=== PATIENT | male | born 1950 | race Caucasian/White ===

== ENCOUNTER 2018-01-28 17:41 | Inpatient (IN) | payer MEDICARE, BC ==
[2018-01-28] MEDS ORDERED: Morphine 4 MG/ML VIAL ONE (17:49)
[2018-01-28 18:08] LABS: Hemoglobin 12.1 g/dL (14.0-18.0); Mean Corpuscular HGB CONC 30.3 g/dL (32.0-36.0); Mean Corpuscular Hemoglobin 30.1 pg (27.0-31.0); Mean Corpuscular Volume 99.4 fL (78.0-98.0); Mean Platelet Volume 6.3 fL (7.4-10.4); Platelet Count 599 thou/uL (130-400); RBC Distribution Width 13.7 % (11.5-14.5); Red Blood Cell (RBC) Count 4.02 mill/uL (4.70-6.10); White Blood Cell (WBC) Count 30.2 thou/uL (4.8-10.8)
[2018-01-28 18:13] LABS: INR-International Normal Ratio 1.1; PTT 33.3 SEC (22.9-36.1); Prothrombin Time 13.9 SEC (12.0-14.7)
[2018-01-28 18:26] LABS: ALT (SGPT) 11 U/L (8-55); AST (SGOT) 24 U/L (5-34); Albumin 3.2 g/dL (3.4-4.8); Alkaline Phosphatase 99 U/L (40-150); Anion Gap 15 mmol/L (10-20); BUN (Urea Nitrogen) 9 mg/dL (8.4-25.7); Bilirubin, Total Less than 0.2 mg/dL (0.2-1.2); Calc. Creatinine Clearance 0 mL/min (70-130); Calcium 8.7 mg/dL (7.8-10.44); Carbon Dioxide 23 mmol/L (23-31); Chloride 104 mmol/L (98-107); Estimated GFR-MDRD Greater than 90; Globulin 3.4 g/dL (2.4-3.5); Glucose 146 mg/dL (80-115); Potassium 4.7 mmol/L (3.5-5.1); Protein, Total 6.6 g/dL (5.8-8.1); Sodium 137 mmol/L (136-145)
[2018-01-28 18:29] LABS: Band 1 % (5-11); Lymphocytes 5 % (21-51); MDiff Complete? YES; Monocytes 4 % (0-10); Neutrophil 90 % (42-75); PLT Morphology Comment Appears Increased
[2018-01-28] MEDS ORDERED: Morphine 2 MG/ML SYRINGE ONE (19:10)
[2018-01-28] MEDS ORDERED: methylPREDNISolone Sod Succ/PF 125 MG/2 ML VIAL ONE (19:10)
--- NOTE | 2018-01-28 19:20 | RAD ---
CHEST 1 VIEW: Date: 01/28/18 HISTORY: Pneumothorax. COMPARISON: Radiograph same date. FINDINGS: Interval decreased kinking of the thoracostomy tube. The subcutaneous emphysema is similar. Multiple right-sided rib fractures. Right upper lung mass. IMPRESSION: Size decreased pneumothorax with decreased kinking of the thoracostomy tube. POS: [facility]
[2018-01-28] MEDS ORDERED: Ondansetron ODT 4 MG TAB PO PRN (19:27)
[2018-01-28] MEDS ORDERED: Dextrose 50% Abboject 50 ML SYRINGE SLOW IVP PRN (19:27)
[2018-01-28] MEDS ORDERED: Ondansetron PF 4 MG/2 ML Vial IVP PRN (19:27)
[2018-01-28] MEDS ORDERED: Dextrose 5% in Water 1,000 ML IV PRN (19:27)
[2018-01-28] MEDS ORDERED: Ketorolac Tromethamine 30 MG/ML VIAL ONE (19:28)
[2018-01-28] MEDS ORDERED: Bacitracin Zinc 1 Packet ONE (19:34)
[2018-01-28 19:55] LABS: CKMB 2.8 ng/mL (0-6.6); Troponin I Less than 0.010 ng/mL (< 0.028)
[2018-01-28 21:30] VITALS: BMI 14.1
[2018-01-28] MEDS: Fluconazole 100 MG TAB PO SCH (21:42)
[2018-01-28] MEDS: Famotidine 20 MG TAB PO SCH (21:42)
[2018-01-28] MEDS: Gabapentin 100 MG CAP PO SCH (21:44)
[2018-01-28] MEDS: Acetaminophen/Codeine 30-300mg Tablet PO SCH (21:45)
[2018-01-28] MEDS: guaiFENesin ER 600 MG TAB PO SCH (21:45)
--- NOTE | 2018-01-28 23:32 | HP ---
DATE OF ADMISSION: 01/28/2018 ATTENDING PHYSICIAN: Dr. Davis. TRAUMA ACTIVATION: Not applicable. HISTORY OF PRESENT ILLNESS: This is a 67-year-old male with a past medical history of COPD and histoplasmosis who presented to [facility] with a chief complaint of chest pain status post fall. Patient states that he was ambulating in his house when he turned and fell suddenly striking his right side. Denies head trauma or loss of consciousness, dizziness, chest pain, shortness of breath out of the ordinary for him increased sputum production, fevers or chills. He was seen and evaluated in the emergency room and found to have a large right hemopneumothorax with multiple rib fractures. A chest tube was placed and he was transferred to [facility] for further evaluation and care. Upon our evaluation here, the patient was significantly tachycardic and had continued chest discomfort. Post-chest tube, chest x-ray demonstrated reexpansion of his lung. He had persistent tachycardia and was on 6 liters nasal cannula. PAST MEDICAL HISTORY/ALLERGIES: None, although he does have an adverse reaction to LEVAQUIN. HOME MEDICATIONS: Include sertraline 100 mg daily, Mucinex 600 mg b.i.d., Tylenol #3 one q.4-6 hours p.r.n., ibuprofen p.r.n., DuoNeb q.i.d. p.r.n., albuterol inhaler p.r.n., ibandronate 150 mg monthly, Trelegy Ellipta 1 puff daily, fluconazole 200 mg b.i.d. CHRONIC MEDICAL ILLNESSES: Include COPD, osteoporosis, and orthostatic hypotension, histoplasmosis. PAST SURGICAL HISTORY: Mastoidectomy. 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 He has a remote history of significant tobacco abuse. Denies alcohol or illicit drug use. FAMILY HISTORY: Significant for a father with colon cancer and a sister with breast cancer as well as a brother with CAD. REVIEW OF SYSTEMS: A 10-point review of systems was performed and negative except as indicated in the HPI. PHYSICAL EXAMINATION: VITAL SIGNS: Most recent vital signs include blood pressure 102/73, pulse 120, respirations 20, O2 sat 99% on 4 liters nasal cannula. Pain 6/10, temperature 98.1. GENERAL: Elderly appearing male in no acute distress, resting in bed. HEAD: Normocephalic, atraumatic. EYES: Pupils are PERRL. Extraocular movements are intact. NECK: Supple. Trachea is midline. PULMONARY: Chest is tender to palpation all along the right side. Pain and splinting with inspiration. Chest tube dressing is clean, dry, and intact. There is some inspiratory wheezing with coarse rhonchi. CARDIOVASCULAR: Tachycardic, no obvious murmurs, rubs or gallops. GASTROINTESTINAL: Abdomen is soft, nontender, nondistended. Bowel sounds are positive. MUSCULOSKELETAL: Moves all extremities x4. There is a left upper extremity skin tear. NEUROLOGIC: No focal deficit is noted. LABORATORY DATA AND IMAGING DATA: WBC 30.2, hemoglobin 12.1, hematocrit 40.0, platelet count 599, 1% bands. INR is 1.1. Sodium 137, potassium 4.7, chloride 104, carbon dioxide 23, BUN 9, creatinine 0.82, glucose 146. AST and ALT within normal limits. Troponin less than 0.010. EKG was sinus tachycardia, nonspecific T-wave changes and right axis deviation. Chest x-ray with hyperinflated lungs, coarse interstitial markings, right upper lobe mass and multiple right-sided rib fractures. Chest tube is in place with decreased amount of kinking. CT of the chest, abdomen, and pelvis performed at an outside facility was read as having a large right-sided hemopneumothorax, multiple right rib fractures including ribs 6, 7, 8 and 9 with segmental fractures. There was an interval increase in the right upper lobe mass and left basilar opacity. CT of the abdomen and pelvis was negative for acute traumatic injury. ASSESSMENT: 1. Status post mechanical fall. 2. Large hemopneumothorax status post chest tube placement. 3. History of severe chronic obstructive pulmonary disease. 4. 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 5. Acute traumatic pain. 6. Flail chest, right rib fractures 6, 7, 8 and 9. 7. Sinus tachycardia. 8. Macrocytic anemia. 9. Leukocytosis and thrombocytosis. PLAN: Admit to Trauma Services. We will admit to IMCU for closer monitoring given patient's significant tachycardia and O2 requirement. Multimodal pain management. Continue patient's home fluconazole and Tylenol #3. Xopenex nebs given COPD and tachycardia. The patient has received a dose of IV steroids. A.m. chest x-ray. Incentive spirometry and pulmonary toileting. A.m. labs. Plan for admission were discussed with the patient and family at bedside and all questions were answered at the time of this dictation. Trauma attending has been notified of admission. ARTURO
[2018-01-29] MEDS: Ketorolac Tromethamine 30 MG/ML VIAL IVP SCH ×5 (00:10→22:59)
[2018-01-29] MEDS: Levalbuterol HCl 0.63 MG/3 ML NEB NEB SCH ×2 (01:01→06:03)
[2018-01-29] MEDS: Acetaminophen/Codeine 30-300mg Tablet PO SCH ×6 (01:49→20:25)
[2018-01-29 04:23] LABS: Anion Gap 11 mmol/L (10-20); BUN (Urea Nitrogen) 10 mg/dL (8.4-25.7); Calc. Creatinine Clearance 68 mL/min (70-130); Calcium 8.9 mg/dL (7.8-10.44); Carbon Dioxide 26 mmol/L (23-31); Chloride 105 mmol/L (98-107); Estimated GFR-MDRD Greater than 90; Glucose 188 mg/dL (80-115); Magnesium 1.6 mg/dL (1.6-2.6); Phosphorus 3.6 mg/dL (2.3-4.7); Potassium 4.3 mmol/L (3.5-5.1); Sodium 138 mmol/L (136-145)
[2018-01-29 04:38] LABS: #Lymphocytes 0.5 thou/uL (1.20-3.40); #Monocytes 0.4 thou/uL (0.11-0.59); #Neutrophils 16.9 thou/uL (1.40-6.50); %Eosinophils 0.1 % (0.0-10.0); %Monocytes 2.2 % (0.0-10.0); %Neutrophils 94.6 % (42.0-75.0); Hemoglobin 10.8 g/dL (14.0-18.0); Mean Corpuscular HGB CONC 31.4 g/dL (32.0-36.0); Mean Corpuscular Volume 98.9 fL (78.0-98.0); Mean Platelet Volume 6.5 fL (7.4-10.4); Platelet Count 522 thou/uL (130-400); RBC Distribution Width 13.6 % (11.5-14.5); White Blood Cell (WBC) Count 17.8 thou/uL (4.8-10.8)
[2018-01-29] MEDS ORDERED: Magnesium 2 GM/50 ML 2 GM in Premix Bag 1 BAG IVPB SCH (08:15)
[2018-01-29] MEDS: Famotidine 20 MG TAB PO SCH ×2 (09:00→21:04)
[2018-01-29] MEDS: Fluconazole 100 MG TAB PO SCH ×2 (09:00→21:04)
[2018-01-29] MEDS: Gabapentin 100 MG CAP PO SCH ×3 (09:01→21:04)
[2018-01-29] MEDS: guaiFENesin ER 600 MG TAB PO SCH ×2 (09:01→20:25)
[2018-01-29] MEDS: FLUTICASONE FUROATE INH SCH (09:18)
[2018-01-29] MEDS: UMECLIDINIUM INH SCH (09:18)
[2018-01-29] MEDS: Cyclobenzaprine 10 MG TAB PO PRN ×2 (09:18→20:26)
[2018-01-29] MEDS: VILANTEROL INH SCH (09:18)
--- NOTE | 2018-01-29 09:48 | RAD ---
PORTABLE CHEST: Date: 01/29/18 HISTORY: Follow-up pneumothorax. COMPARISON: 01/28/18. FINDINGS: Right-sided chest tube is unchanged in position. Lungs appear well aerated. Opacification of the righ t apex is unchanged. No significant pneumothorax. Right-sided rib fractures again noted. Extensive ri ght subcutaneous emphysema again noted. IMPRESSION: No acute interval change apparent. POS: [facility]
[2018-01-29] MEDS: Acetaminophen/Codeine 30-300mg Tablet PO PRN ×3 (10:21→22:52)
--- NOTE | 2018-01-29 14:23 | PRG ---
DATE OF SERVICE: 01/29/2018 SUBJECTIVE: This is a 67-year-old male, hospital day #2 who presented to [facility] as a transfer from [facility] status post mechanical fall. The patient sustained multiple rib fractures, resulting in flail segments and a large right hemopneumothorax. Chest tube was placed in [place]. There were no acute overnight events. This morning, the patient states that the pain has been improved. Heart rate is improved as is O2 requirements. Chest x-ray is stable. OBJECTIVE: VITAL SIGNS: Temperature 97.8, pulse 97, respirations 18, O2 sat 97% on 2 liters nasal cannula, blood pressure 128/83. GENERAL: Elderly appearing male in no acute distress, resting in bed. PULMONARY: IS 1250 mL. Nonlabored breathing. Symmetric rise. Chest tube is in place. Minimal serosanguineous drainage. CARDIOVASCULAR: Regular rate and rhythm. GASTROINTESTINAL: Abdomen is soft, nontender, nondistended. MUSCULOSKELETAL: Moves all extremities x4. NEUROLOGIC: No focal deficit noted. LABORATORY DATA AND IMAGING DATA: WBC 17.8, hemoglobin 10.8, hematocrit 34.6, platelet count 522. Sodium 138, potassium 4.3, chloride 105, carbon dioxide 26 , BUN 10, creatinine 0.76, glucose 188, phosphorus 3.6, magnesium 1.6. Chest x- ray read as no acute interval change. ASSESSMENT: 1. Status post mechanical fall. 2. Right hemopneumothorax. 3. Acute traumatic pain. 4. Right rib fractures 6, 7, 8 and 9 with flail segment. 5. Histoplasmosis. 6. History of chronic obstructive pulmonary disease. 7. Generalized weakness and deconditioning. 8. Leukocytosis, improved. 9. Macrocytic anemia. 10. Hypomagnesemia. PLAN: Replete abnormal electrolytes. Continue to encourage incentive spirometry and mobility. PT/OT given patient's history of pulmonary disease and reported generalized deconditioning. Continue pain regimen as ordered. A.m. chest x-ray. Chest tube to water seal. Patient is stable for transfer to surgical floor. The patient had been seen and evaluated with Dr. Brooke. Plan of care was discussed with the patient at bedside. All questions were answered at the time of this dictation. [facility]ITAL[facility]
[2018-01-30] MEDS: Acetaminophen/Codeine 30-300mg Tablet PO SCH ×6 (03:35→21:10)
[2018-01-30] MEDS: Ketorolac Tromethamine 30 MG/ML VIAL IVP SCH (06:04)
[2018-01-30 06:11] LABS: #Lymphocytes 1.1 thou/uL (1.20-3.40); #Monocytes 1.3 thou/uL (0.11-0.59); #Neutrophils 13.4 thou/uL (1.40-6.50); %Basophils 0.1 % (0.0-1.0); %Eosinophils 0.1 % (0.0-10.0); %Lymphocytes 7.1 % (21.0-51.0); %Monocytes 8.1 % (0.0-10.0); %Neutrophils 84.6 % (42.0-75.0); Hemoglobin 9.9 g/dL (14.0-18.0); Mean Corpuscular HGB CONC 31.6 g/dL (32.0-36.0); Mean Corpuscular Hemoglobin 30.9 pg (27.0-31.0); Mean Corpuscular Volume 97.9 fL (78.0-98.0); Mean Platelet Volume 6.5 fL (7.4-10.4); Platelet Count 485 thou/uL (130-400); RBC Distribution Width 13.6 % (11.5-14.5); White Blood Cell (WBC) Count 15.8 thou/uL (4.8-10.8)
--- NOTE | 2018-01-30 08:02 | RAD ---
PORTABLE CHEST: Date: 01/30/18 HISTORY: Follow-up pneumothorax and chest tube. COMPARISON: 01/29/18. FINDINGS/IMPRESSION: Right side chest tube is unchanged. Large amount of subcutaneous emphysema again noted over the right chest. No evidence of significant pneumothorax. The lungs otherwise remain clear and unchanged. POS: [facility]
[2018-01-30] MEDS: Fluconazole 100 MG TAB PO SCH ×2 (09:09→19:24)
[2018-01-30] MEDS: Famotidine 20 MG TAB PO SCH ×2 (09:10→19:24)
[2018-01-30] MEDS: guaiFENesin ER 600 MG TAB PO SCH ×2 (09:10→19:46)
[2018-01-30] MEDS: Gabapentin 100 MG CAP PO SCH ×3 (09:10→19:24)
[2018-01-30] MEDS: Enoxaparin Sodium 40 MG/0.4 ML SYRINGE SC SCH (09:10)
[2018-01-30] MEDS: Cyclobenzaprine 10 MG TAB PO PRN ×2 (11:21→19:46)
[2018-01-30] MEDS: Acetaminophen/Codeine 30-300mg Tablet PO PRN ×2 (11:23→19:47)
[2018-01-30] MEDS: VILANTEROL INH SCH (13:14)
[2018-01-30] MEDS: FLUTICASONE FUROATE INH SCH (13:14)
[2018-01-30] MEDS: UMECLIDINIUM INH SCH (13:14)
[2018-01-30] MEDS: Ibuprofen 600 MG TAB PO SCH ×2 (13:31→21:10)
--- NOTE | 2018-01-30 19:46 | PRG ---
DATE OF SERVICE: 01/30/2018 SUBJECTIVE: This is a 67-year-old male, hospital day and post-injury day #3, who had a mechanical fa ll resulting multiple right rib fractures and a large right hemopneumothorax. There were no acute ov ernight events. The patient states that pain is tolerable. He remains O2 dependent. He did have li mited mobility with physical therapy yesterday. Upon my evaluation, the patient vocalized no complai nts. OBJECTIVE: VITAL SIGNS: Temperature 97.8, pulse 107, respirations 22, O2 sat 98% on room air, blood pressure 13 5/79. GENERAL: Elderly appearing male in no acute distress, resting in bed. PULMONARY: mL. Breathing is nonlabored. LUNGS: Symmetric chest rise. Chest tube is in place with minimal serosanguineous drainage. Lungs a re distant but minimal drainage. CARDIOVASCULAR: Mildly tachycardic. GASTROINTESTINAL: Abdomen is soft, nontender, nondistended. MUSCULOSKELETAL: Moves all extremities x4. NEUROLOGIC: No focal deficit noted. RADIOGRAPHIC FINDINGS: Chest x-ray with stable appearance. Chest tube is in place. No evidence of pneumothorax. ASSESSMENT: 1. Status post mechanical fall. 2. Right hemopneumothorax. 3. Acute traumatic pain. 4. Right rib fractures 6, 7, 8, and 9 with flail segment. 5. Histoplasmosis. 6. History of chronic obstructive pulmonary disease. 7. Weakness and deconditioning secondary to above. 8. Leukocytosis, improving. 9. Macrocytic anemia, stable. PLAN: Discontinue chest tube at this time. Continue to wean oxygen as tolerated. Encourage incenti ve spirometry, pulmonary toileting, and mobility. Importance Of note, the patient has been refusing his DVT prophylaxis. Importance of this medication and risk factors for DVT discussed extensively wi th the patient, who vocalized his understanding. Case Management for assistance with disposition. P marshall of care was discussed with the patient at bedside who verbalized his understanding. All question s were answered at the time of this dictation. The patient was discussed with trauma attending.
[2018-01-31] MEDS: Acetaminophen/Codeine 30-300mg Tablet PO PRN (00:49)
[2018-01-31] MEDS: Acetaminophen/Codeine 30-300mg Tablet PO SCH ×6 (04:27→20:16)
[2018-01-31] MEDS: Ibuprofen 600 MG TAB PO SCH ×3 (05:30→20:59)
[2018-01-31 06:04] LABS: #Eosinphils 0.2 thou/uL (0.0-0.7); #Lymphocytes 1.1 thou/uL (1.20-3.40); #Monocytes 1.1 thou/uL (0.11-0.59); #Neutrophils 9.1 thou/uL (1.40-6.50); %Basophils 0.2 % (0.0-1.0); %Eosinophils 1.9 % (0.0-10.0); %Lymphocytes 9.6 % (21.0-51.0); %Monocytes 9.4 % (0.0-10.0); %Neutrophils 78.9 % (42.0-75.0); Hemoglobin 10.7 g/dL (14.0-18.0); Mean Corpuscular HGB CONC 30.5 g/dL (32.0-36.0); Mean Corpuscular Hemoglobin 30.1 pg (27.0-31.0); Mean Corpuscular Volume 98.5 fL (78.0-98.0); Mean Platelet Volume 6.5 fL (7.4-10.4); Platelet Count 536 thou/uL (130-400); RBC Distribution Width 13.8 % (11.5-14.5); Red Blood Cell (RBC) Count 3.55 mill/uL (4.70-6.10); White Blood Cell (WBC) Count 11.5 thou/uL (4.8-10.8)
[2018-01-31 06:27] LABS: Anion Gap 10 mmol/L (10-20); BUN (Urea Nitrogen) 7 mg/dL (8.4-25.7); Calc. Creatinine Clearance 78 mL/min (70-130); Calcium 8.9 mg/dL (7.8-10.44); Carbon Dioxide 32 mmol/L (23-31); Chloride 103 mmol/L (98-107); Estimated GFR-MDRD Greater than 90; Glucose 97 mg/dL (80-115); Magnesium 1.6 mg/dL (1.6-2.6); Phosphorus 2.6 mg/dL (2.3-4.7); Potassium 4.4 mmol/L (3.5-5.1); Sodium 141 mmol/L (136-145)
--- NOTE | 2018-01-31 08:50 | RAD ---
SINGLE VIEW CHEST: Date: 01/31/18 COMPARISON: 01/30/18. HISTORY: Chest tube removal. FINDINGS: Single view of the chest shows a normal sized cardiomediastinal silhouette. Increased interstitial ivy ng markings are present. The right-sided chest tube has been removed. No pneumothorax is seen. There is extensive air in the right chest wall. IMPRESSION: Stable exam status post chest tube removal. POS: [facility]
[2018-01-31] MEDS: Enoxaparin Sodium 40 MG/0.4 ML SYRINGE SC SCH (10:07)
[2018-01-31] MEDS: Cyclobenzaprine 10 MG TAB PO PRN (10:08)
[2018-01-31] MEDS: guaiFENesin ER 600 MG TAB PO SCH ×2 (10:08→20:18)
[2018-01-31] MEDS: Gabapentin 100 MG CAP PO SCH ×3 (10:08→20:16)
[2018-01-31] MEDS: Famotidine 20 MG TAB PO SCH ×2 (10:08→20:18)
[2018-01-31] MEDS: Fluconazole 100 MG TAB PO SCH ×2 (10:08→20:18)
[2018-01-31] MEDS: FLUTICASONE FUROATE INH SCH ×2 (10:41→12:05)
[2018-01-31] MEDS: VILANTEROL INH SCH ×2 (10:41→12:05)
[2018-01-31] MEDS: UMECLIDINIUM INH SCH ×2 (10:41→12:05)
--- NOTE | 2018-01-31 15:11 | PRG-2 ---
DATE OF SERVICE: 01/31/2018 RESIDENT: Sylvia Maria MD SUPERVISING ATTENDING: Jean Pierre Brooke DO SUBJECTIVE: This is a 67-year-old male, hospital day and post-injury day #4, who had a mechanical fall resulting in multiple right rib fractures and a large right hemopneumothorax. There were no acute events overnight. The patient states that his pain is tolerable. He remains on 2 liters nasal cannula. He continues to work with physical and occupational therapy. Upon my evaluation, the patient vocalizes no complaints. OBJECTIVE: VITAL SIGNS: Temperature 98, pulse 108, respirations 18, O2 saturation 96% on room air, blood pressure 142/86. GENERAL: Elderly appearing male in no acute distress, resting in bed. PULMONARY: On 2 liters nasal cannula on exam, breathing is nonlabored. LUNGS: Bilateral symmetrical chest rise. CARDIOVASCULAR: Mildly tachycardic. ABDOMEN: Soft, nontender, nondistended. MUSCULOSKELETAL free range of motion in all extremities x4. NEUROLOGIC: Nonfocal exam. LABORATORY DATA: WBCs 11.5, hemoglobin 10.7, hematocrit 35, platelets 536. Sodium 141, potassium 4.4, chloride 103, BUN 7, creatinine 0.66, calcium 8.9, phosphorus 2.6, magnesium 1.6. RADIOGRAPHIC FINDINGS: Chest x-ray this a.m. that read stable exam, status post chest tube removal. ASSESSMENT: 1. Status post mechanical fall. 2. Right hemopneumothorax. 3. Acute traumatic pain. 4. Right rib fractures 6 through 9 with flail segment. 5. Histoplasmosis on fluconazole. 6. History of chronic obstructive pulmonary disease. 7. Weakness and deconditioning secondary to above. 8. Leukocytosis, improving. 9. Macrocytic anemia, stable. PLAN: The patient continues to improve. We will continue to wean oxygen as tolerated. Pt has a hx of COPD, not on oxygen at home. Currently on 2L NC. We will continue to encourage incentive spirometry, pulmonary toileting, and mobility. The patient will continue to work with PT/OT. Importance of note, the patient continues to refuse his DVT prophylaxis along with other p.o. medications. The importance of this medication and risk factors of DVT were discussed extensively with the patient, who vocalizes understanding. Case Management continues to be of assistance with disposition. Per Case Management , the daughter states that the patient is noncompliant and in the outpatient rehab setting and would like him to go to inpatient. The patient is refusing inpatient rehab at this time. We will continue to discuss with family and case management for disposition. Plan of care was discussed with the patient at the bedside. He verbalizes understanding. All questions were answered at the time of evaluation. The patient's plan and disposition were discussed with trauma attending Dr. Brooke who is in agreement. [facility]
[2018-01-31] MEDS: Senokot 8.6 MG TAB PO SCH (20:19)
[2018-02-01] MEDS: Acetaminophen/Codeine 30-300mg Tablet PO SCH ×5 (00:16→16:00)
[2018-02-01] MEDS: Ibuprofen 600 MG TAB PO SCH ×2 (05:10→13:39)
[2018-02-01] MEDS: Fluconazole 100 MG TAB PO SCH (08:59)
[2018-02-01] MEDS: Senokot 8.6 MG TAB PO SCH (08:59)
[2018-02-01] MEDS: Gabapentin 100 MG CAP PO SCH ×2 (09:00→13:39)
[2018-02-01] MEDS: guaiFENesin ER 600 MG TAB PO SCH (09:00)
[2018-02-01] MEDS: Famotidine 20 MG TAB PO SCH (09:00)
[2018-02-01] MEDS: Enoxaparin Sodium 40 MG/0.4 ML SYRINGE SC SCH (09:00)
[2018-02-01] MEDS ORDERED: Polyethylene Glycol 3350 17 GM Packet PO SCH (09:00)
[2018-02-01] MEDS: FLUTICASONE FUROATE INH SCH (09:02)
[2018-02-01] MEDS: VILANTEROL INH SCH (09:02)
[2018-02-01] MEDS: UMECLIDINIUM INH SCH (09:02)
[2018-02-01] MEDS: Cyclobenzaprine 10 MG TAB PO PRN (16:00)
[2018-02-01 16:01] VITALS: BP 152/90; TEMP 98.3
--- NOTE | 2018-02-02 06:52 | DIS-2 ---
DATE OF ADMISSION: 01/28/2018 DATE OF DISCHARGE: 02/01/2018 RESIDENT: Dr. Sylvia Maria SUPERVISING ATTENDING: Dr. Jean iPerre Brooke CONSULTATIONS: Case management, PT/OT. PROCEDURES: None. PRIMARY DIAGNOSES: Hemopneumothorax status post chest tube placement, flail chest with rib fractures 6 through 9 on the right. SECONDARY DIAGNOSES: Sinus tachycardia, macrocytic anemia, COPD, histoplasmosis. DISCHARGE MEDICATIONS: 1. Acetaminophen with codeine 1 tab oral every 4 hours. 2. Ibuprofen (Motrin) 600 mg oral every 8 hours. 3. Guaifenesin ER (Mucinex) 600 mg oral twice daily. 4. Ibandronate sodium 150 mg oral every 30 days. 5. Albuterol sulfate HFA (Proventil HFA) 1 puff inhalation every 4 hours as needed. 6. Ipratropium, albuterol sulfate (DuoNeb) 3 mL nebulizer 4 times daily as needed. 7. Multivitamin 1 tablet oral daily. DISCONTINUED MEDICATIONS: None. HISTORY OF PRESENT ILLNESS/HOSPITAL COURSE: This is a 67-year-old male with a past medical history o f COPD and histoplasmosis on fluconazole who presented to the [facility] with a chief complaint of chest pain status post fall. The patient was ambulating at his house and he turned and fell suddenly striking his right side. He was found to have a large right hemopneumothorax with multiple rib frac tures. A chest tube was placed and he was transferred to [facility] for further evaluation and care. The patient had significant tachycardia on arrival and continued chest discomfort. Post-c hest tube chest x-ray demonstrated reexpansion of the lung. The patient arrived on 6 liters nasal ca nnula. The patient was admitted to the IMCU and monitored closely. Multimodal pain management was b egun. The patient's home medications of fluconazole and Tylenol 3 were restarted. Nebs were given f or his history of COPD and tachycardia. He received a dose of steroids. Incentive spirometry, pulmo nary toilet, PT/OT and ambulation have all been highly encouraged to the patient. His heart rate imp roved and his O2 was able to be weaned to 2 liters nasal cannula prior to discharge. Electrolytes we re replaced as necessary. With the patient's improved status, he was admitted to the surgical floor. Chest tube was removed on 01/30/2018 with no complications. There were some occasions in which the patient refused medications such as his DVT prophylaxis, fluconazole, gabapentin. Chest x-ray on showed stable findings, no pneumothorax. Case management helped to get the patient placed a t an inpatient rehab facility. The family stated that the patient would be noncompliant in an outpat ient rehab and preferred inpatient rehab. After discussing the options with the patient, he agreed t o inpatient rehab. The patient's plan was discussed with Dr. Brooke on the day of discharge, who was in agreement. DISPOSITION: Stable. DISCHARGE INSTRUCTIONS: 1. Location: Inpatient rehab with Dr. Davis. 2. Diet: Regular. 3. Activity: No heavy lifting. 4. Followup: Follow up with PCP within 2 weeks.
--- NOTE | 2018-02-05 22:10 | EKG ---
Test Reason : TACHYCARDIA Blood Pressure : / mmHG Vent. Rate : 140 BPM Atrial Rate : 140 BPM P-R Int : 136 ms QRS Dur : 082 ms QT Int : 274 ms P-R-T Axes : 089 264 082 degrees QTc Int : 418 ms Sinus tachycardia Right superior axis deviation Inferior-posterior infarct , age undetermined Cannot rule out Anterior infarct , age undetermined Abnormal ECG Significant motion artifact Confirmed by FRANCO BRAGG MD ([id number]), editor news REMI LAIRD ([id number]) on 02/05/2018 10:10:28 PM Referred By: Confirmed By:FRANCO BRAGG MD
== END 2018-02-01 17:30 | DRG 199 ==
LOC: ERS 17:41 → IMCU/EMU 19:22 → SURG B 01-29 13:15
PROVIDERS: ADMIT Specialist; ATTEND Specialist
DX: S27.2XXA Traumatic hemopneumothorax, initial encounter (principal); S22.5XXA Flail chest, initial encounter for closed fracture; B39.2 Pulmonary histoplasmosis capsulati, unspecified; S51.811A Laceration without foreign body of right forearm, initial encounter; S51.012A Laceration without foreign body of left elbow, initial encounter; E83.42 Hypomagnesemia; R00.0 Tachycardia, unspecified; J44.9 Chronic obstructive pulmonary disease, unspecified; D53.9 Nutritional anemia, unspecified; M81.0 Age-related osteoporosis without current pathological fracture; Z87.891 Personal history of nicotine dependence; W18.39XA Other fall on same level, initial encounter; Y92.008 Other place in unspecified non-institutional (private) residence as the place of occurrence of the external cause
CPT/HCPCS: 36415; 71045; 80048; 80053; 82553; 83735; 84100; 84484; 85025; 85610; 85730; 86850; 86900; 86901; 93005; 94640; 96361; 96374; 96375; 96376; G0390; G8978-GP-CL; G8979-GP-CI; G8987-GO-CJ; G8988-GO-CI; J1650; J1885; J2270; J2930; J7614; J7620

== ENCOUNTER 2018-02-11 14:44 | Inpatient (IN) | payer MEDICARE, BC ==
[2018-02-11] MEDS ORDERED: methylPREDNISolone Sod Succ/PF 125 MG/2 ML VIAL ONE (15:50)
[2018-02-11] MEDS ORDERED: Water For Inject, Bacteriostat 30 ML ONE (15:50)
[2018-02-11] MEDS ORDERED: Piperacillin/Tazobactam 3.375 GM VIAL ONE (15:50)
--- NOTE | 2018-02-11 15:50 | RAD ---
PORTABLE CHEST 1 VIEW: Date: 02/11/18 Time: 1534 hours HISTORY: Cough. FINDINGS/IMPRESSION: Comparison made with exam of 02/09/18. The heart size is normal. The aorta is tortuous. Chronic changes are again seen bilaterally. Right-si ded small pleural effusions again noted. New small area of opacification is seen in the left lung bas e. Right-sided rib fractures are again demonstrated. POS: [facility]
[2018-02-11 16:08] LABS: Hemoglobin 11.3 g/dL (14.0-18.0); Mean Corpuscular HGB CONC 30.8 g/dL (32.0-36.0); Mean Corpuscular Hemoglobin 30.1 pg (27.0-31.0); Mean Corpuscular Volume 97.7 fL (78.0-98.0); Mean Platelet Volume 6.3 fL (7.4-10.4); Platelet Count 776 thou/uL (130-400); RBC Distribution Width 13.5 % (11.5-14.5); Red Blood Cell (RBC) Count 3.76 mill/uL (4.70-6.10); White Blood Cell (WBC) Count 22.2 thou/uL (4.8-10.8)
[2018-02-11 16:15] LABS: Bilirubin Negative (Negative); Blood, Urine Large (Negative); Clarity CLEAR (Clear); Glucose, Urine (Dipstick) Negative (Negative); Leukocyte Small (Negative); Nitrite Negative (Negative); Protein, Urine (Dipstick) Negative (Neg-Trace); Specific Gravity, Urine 1.037 (1.002-1.036); Urobilinogen 0.2 mg/dL (0.2-1.0); pH, Urine 6.5 (5.0-9.0)
[2018-02-11 16:17] LABS: Bacteria/HPF None Seen HPF (None Seen); Hyaline Casts/LPF 4-6 HYALINE CAST LPF (0-3 Hyaline); Pathc Cast-AUWi Flag 0.87 (0-2.49); RBC/HPF GREATER THAN 50-TNTC HPF (0-3)
[2018-02-11 16:24] LABS: Band 1 % (5-11); Hypochromia SLIGHT = 6-15 cells (100X) (0-5/hpf); Lymphocytes 4 % (21-51); MDiff Complete? YES; Monocytes 3 % (0-10); Neutrophil 92 % (42-75); PLT Morphology Comment Appears Increased
[2018-02-11 16:25] LABS: Renal Epithelial None Seen HPF (0-3); Transitional Epithelial 0-3 HPF (0-3)
[2018-02-11 16:25] LABS: ALT (SGPT) 15 U/L (8-55); AST (SGOT) 24 U/L (5-34); Albumin 3.3 g/dL (3.4-4.8); Alkaline Phosphatase 121 U/L (40-150); Anion Gap 16 mmol/L (10-20); BUN (Urea Nitrogen) 9 mg/dL (8.4-25.7); Bilirubin, Total 0.3 mg/dL (0.2-1.2); Calc. Creatinine Clearance 0 mL/min (70-130); Calcium 9.3 mg/dL (7.8-10.44); Carbon Dioxide 28 mmol/L (23-31); Chloride 92 mmol/L (98-107); Estimated GFR-MDRD Greater than 90; Globulin 3.7 g/dL (2.4-3.5); Glucose 105 mg/dL (80-115); Lipase Less than 4 U/L (8-78); Potassium 4.6 mmol/L (3.5-5.1); Sodium 131 mmol/L (136-145)
[2018-02-11 16:28] LABS: CKMB 5.7 ng/mL (0-6.6); Troponin I Less than 0.010 ng/mL (< 0.028)
[2018-02-11] MEDS ORDERED: Acetaminophen/Codeine 30-300mg Tablet ONE (18:45)
[2018-02-11] MEDS ORDERED: Sodium Chloride 0.45% 1,000 ML IV SCH (19:30)
[2018-02-11 19:41] VITALS: BMI 15.0
[2018-02-11] MEDS ORDERED: Ondansetron PF 4 MG/2 ML Vial IVP PRN (20:49)
[2018-02-11] MEDS ORDERED: Diabetic Tussin 200 MG/10 ML UDCUP PO PRN (20:49)
[2018-02-11] MEDS ORDERED: Benzonatate 100 MG CAP PO PRN (20:49)
[2018-02-11] MEDS ORDERED: hydrALAZINE 20 MG/ML VIAL SLOW IVP PRN (20:49)
[2018-02-11] MEDS ORDERED: Polyethylene Glycol 3350 17 GM Packet PO PRN (20:49)
[2018-02-11] MEDS ORDERED: PROVENTIL INHALER 6.7 G (200 INHALATIONS) INH PRN (20:49)
[2018-02-11] MEDS ORDERED: Ondansetron ODT 4 MG TAB PO PRN (20:49)
[2018-02-11] MEDS ORDERED: Acetaminophen 500 MG TAB PO PRN (20:49)
[2018-02-11] MEDS ORDERED: Vancomycin HCl 1 GM in Sodium Chloride 0.9% 250 ML 300 ML IVPB SCH (21:00)
[2018-02-11] MEDS: Sodium Chloride 0.9% 1,000 ML IV SCH (21:24)
[2018-02-11] MEDS: Cefepime 2 GM in Sodium Chloride 0.9% 100 ML IVPB SCH (21:25)
[2018-02-11] MEDS: guaiFENesin ER 600 MG TAB PO SCH (21:29)
[2018-02-11] MEDS: Famotidine 20 MG TAB PO SCH (21:29)
[2018-02-11] MEDS: Ibuprofen 600 MG TAB PO SCH (21:44)
[2018-02-11] MEDS: Acetaminophen/Codeine 30-300mg Tablet PO PRN (23:38)
[2018-02-11] MEDS: Vancomycin HCl 750 MG in Sodium Chloride 0.9% 250 ML 250 ML IVPB SCH (23:40)
[2018-02-12] MEDS: Acetaminophen/Codeine 30-300mg Tablet PO PRN ×5 (03:49→21:47)
--- NOTE | 2018-02-12 04:28 | HP ---
DATE OF ADMISSION: 02/11/2018 PRIMARY CARE PHYSICIAN: Rosalina bagley. CHIEF COMPLAINT: Shortness of breath and general weakness. HISTORY OF PRESENT ILLNESS: This is a 67-year-old male who presents to [facility] Emergency Department in transfer from [facility] inpatient rehabilitation facility, where patient has been convalescing and undergoing rehabilitation after recent hospitalization from 01/28/2018 through 02/01/2018. Status post mechanical fall with multiple rib fractures and associated hemopneumothorax requiring chest tube placement. Patient was treated during this admission with supportive managemen t as well as chest tube placement with stabilization of the pneumothorax. Patient was transferred to inpatient rehabilitation, where patient states he has been receiving therapy and doing fairly well. In the last 48 hours, he has noted decreasing appetite, increased fatigue, increasing shortness of b reath, and general weakness. Patient was evaluated including a recent sputum culture showing Pseudom onas species. Patient states he was placed on ciprofloxacin by his attending physician, however, con tinued to clinically decline. Patient admits to a history of histoplasmosis diagnosed in 08/2017, tr eated with daily fluconazole. 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 Patient states he has had a positive PPD test in the past and needed yearly chest x-rays. In the emergency room, iva gallegos underwent CT angiogram of the chest due to worsening hypoxia and dyspnea showing evidence of c avitation of the right upper lobe. Patient was also noted with worsening bilateral perihilar infiltr ates compared to previous imaging. Patient received Tylenol No.3, Solu-Medrol, Zosyn, vancomycin, in travenous normal saline, and bronchodilator therapy with DuoNebs after concern for healthcare-associa donna pneumonia and criteria for sepsis. Patient was transferred to the medical floor for further eval uation. PAST MEDICAL HISTORY: 1. Chronic obstructive pulmonary disease/emphysema. 2. Recent chest trauma, status post fall with multiple rib fractures. 3. Hemopneumothorax, status post fall. 4. Depression. 5. Osteoporosis. 6. Histoplasmosis currently treated with fluconazole. PAST SURGICAL HISTORY: 1. Status post mastoidectomy. 2. Status post chest tube placement in the right chest in 01/2018. CURRENT MEDICATIONS: 1. Tylenol No.3, 300 mg/30 mg 2 tabs p.o. q.4 hours p.r.n. pain. 2. Albuterol sulfate 1 puff inhaled q.4 hours p.r.n. 3. Fluconazole 400 mg p.o. daily. 4. Trelegy-Ellipta 100/62.5/25 one inhalation daily. 5. Mucinex 600 mg p.o. b.i.d. 6. DuoNeb 3 mL nebulized q.i.d. p.r.n. 7. Multivitamin 1 tab p.o. daily. 8. MiraLax 17 grams p.o. daily. 9. Sertraline 100 mg p.o. at bedtime. 10. Motrin 600 mg p.o. q.8 hours p.r.n. ALLERGIES: LEVOFLOXACIN. FAMILY HISTORY: Father with colon cancer and sister with breast cancer. 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 Remote tobacc o use, none currently. No alcohol or illicit drug use. . REVIEW OF SYSTEMS: The following complete review of systems was otherwise negative, except as stated per HPI: Constitutional: Weight loss or gain, ability to conduct usual activities. Skin: Rash, i tching. Eyes: Double vision, pain. ENT/Mouth: Nose bleeding, neck stiffness, pain, tenderness. C ardiovascular: Palpitations, dyspnea on exertion, orthopnea. Respiratory: Shortness of breath, whe ezing, cough, hemoptysis, fever, or night sweats. Gastrointestinal: Poor appetite, abdominal pain, heartburn, nausea, vomiting, constipation, or diarrhea. Genitourinary: Urgency, frequency, dysuria, nocturia. Musculoskeletal: Pain, swelling. Neurologic/Psychiatric: Anxiety, depression. Allergy /Immunologic: Skin rash, bleeding tendency. PHYSICAL EXAMINATION: VITAL SIGNS: On admission, blood pressure 142/83, pulse 105, respiratory rate 20, temperature 98.6 d egrees Fahrenheit, O2 saturation 94% on 3 liters per minute by nasal cannula. GENERAL APPEARANCE: This is a 67-year-old male, cachectic, frail-appearing, alert and orie nted x3. HEENT: Pupils are equal, round, and reactive to light and accommodation. Extraocular muscles are in tact. No scleral icterus, no conjunctival injection. Nares patent. OP is clear. Teeth in fair rep air. NECK: Supple, no cervical adenopathy, no thyromegaly, no carotid bruits, no JVD noted. Cervical spi ne with full active and passive range of motion. No meningeal signs appreciated. CHEST: Diminished breath sounds in bilateral lung murillo with minimal airflow except for the upper f ields. Occasional expiratory wheeze. CARDIOVASCULAR: S1, S2 without noted murmur, rub, or gallop. Heart sounds are distant. ABDOMEN: Scaphoid, nontender, nondistended. Bowel sounds are positive in all four quadrants. No pa lpable mass. No rebound or guarding noted. EXTREMITIES: Generalized severe muscle atrophy noted. Minimal edema at the ankles. Pulses palpable distally at the dorsalis pedis, posterior tibial, and popliteal arteries bilaterally. Capillary ref ill less than 2 seconds. NEUROLOGIC: Cranial nerves II through XII are grossly intact. No focal or lateralizing signs apprec iated. Patient not observed ambulatory during this exam. PERTINENT LABORATORY AND X-RAY FINDINGS: Sodium 131, potassium 4.6, chloride 92, CO2 of 28, BUN 9, c reatinine 0.72, estimated GFR greater than 90, glucose 105. Lactic acid level 1.5. LFTs within norm al limits. Albumin 3.3. TSH 4.07. CBC showed a white blood cell count of 22.2, hemoglobin 11.3, he matocrit 37, platelet count 776 with 92% neutrophilia, 1% bands. Urinalysis showed specific gravity of 1.037, trace ketones, large blood with greater than 50 to too numerous to count rbc's per high pow ered field and 11-20 wbc's per high power field, 7-10 squamous epithelial cells noted. Urine culture dated 02/08/2018 showed presumptive Pseudomonas aeruginosa. Chest drain site 02/08/2018 showed meth icillin-resistant Staphylococcus aureus. Sputum culture dated 02/09/[address]. CT angiogram of the chest dated 02/11/2018 showed no evidence of pulmonary embolus. Severe hype rinflation and emphysematous changes with scattered bullae. Areas of cavitation enlarging slightly w ith consolidation since prior study 07/22/2017. Severe chronic obstructive pulmonary disease noted. Acute right lateral mid rib fractures consistent with prior history. Portable chest x-ray dated 12/2017 showed chronic changes as noted previously. Right-sided small pleural effusion. Opacificati on in the left lung base. Right-sided rib fractures noted. EKG dated 02/11/2018 by my interpretatio n shows sinus tachycardia, heart rates in the 50s. Normal R-wave progression noted in the precordial leads. Right axis deviation noted. ASSESSMENT AND PLAN: 1. Sepsis. Patient will be admitted to the medical floor. Patient was initially managed with sepsi s protocol in the emergency room with aggressive IV fluid resuscitation. Patient was noted with tach ycardia, tachypnea, hypoxia, and leukocytosis. Suspect initial pulmonary source given patient's ches t findings and prior history. We will continue general sepsis protocol and repeat lactic acid level. See further management in #2. 2. Healthcare-associated pneumonia. Suspect Pseudomonas species given patient's recent sputum cultu re results on 02/09/2018. We will continue broad spectrum coverage with vancomycin 1 gram IV q.12 ho urs with additional cefepime 2 grams IV q.12 hours. We will continue ciprofloxacin 400 mg IV q.12 ho urs given sensitivity pattern. Continue pulmonary supportive measures in addition to bronchodilator therapy, Solu-Medrol 40 mg IV q.6 hours. We will consult Pulmonology Service in the a.m. for further management. 3. Right upper lobe cavitary lesion. Patient with known history of histoplasmosis currently managed with fluconazole. We will consult Pulmonology Service for further evaluation. Check QuantiFERON-TB lab exam with additional AFB smears x3. Placed on respiratory precautions. 4. Acute hypoxic respiratory failure. Suspect multifactorial given patient's history of chronic obs tructive pulmonary disease, recent chest trauma with rib fractures and pneumothorax as well as potent ial developing pneumonia. Continue oxygen supplementation to maintain O2 saturations greater than or equal to 90%. Bronchodilator therapy with DuoNebs, Solu-Medrol 40 mg IV q.6 hours. Resume Trelegy- Ellipta. 5. Multiple rib fractures status post fall. Continue symptomatic and supportive management. PT consuelo haynesation for functional assessment. 6. Prophylaxis. Sequential compression devices while in bed. Protonix 40 mg p.o. daily. Respirato ry/contact precautions. 7. Code status is FULL. Surrogate medical decision maker is patient's spouse.
[2018-02-12] MEDS: Ibuprofen 600 MG TAB PO SCH ×3 (05:22→20:36)
[2018-02-12 05:31] LABS: Band 5 % (5-11); Lymphocytes 2 % (21-51); MDiff Complete? YES; Mean Corpuscular HGB CONC 30.7 g/dL (32.0-36.0); Mean Corpuscular Hemoglobin 30.2 pg (27.0-31.0); Mean Corpuscular Volume 98.4 fL (78.0-98.0); Mean Platelet Volume 6.4 fL (7.4-10.4); Monocytes 1 % (0-10); Neutrophil 92 % (42-75); PLT Morphology Comment Appears Increased; Platelet Count 773 thou/uL (130-400); RBC Distribution Width 13.4 % (11.5-14.5); Red Blood Cell (RBC) Count 3.65 mill/uL (4.70-6.10); White Blood Cell (WBC) Count 12.2 thou/uL (4.8-10.8)
[2018-02-12 05:45] LABS: ALT (SGPT) 15 U/L (8-55); AST (SGOT) 23 U/L (5-34); Albumin 3.1 g/dL (3.4-4.8); Alkaline Phosphatase 115 U/L (40-150); Anion Gap 11 mmol/L (10-20); BUN (Urea Nitrogen) 8 mg/dL (8.4-25.7); Bilirubin, Total 0.2 mg/dL (0.2-1.2); Calc. Creatinine Clearance 83 mL/min (70-130); Carbon Dioxide 31 mmol/L (23-31); Chloride 96 mmol/L (98-107); Estimated GFR-MDRD Greater than 90; Globulin 3.5 g/dL (2.4-3.5); Glucose 140 mg/dL (80-115); Potassium 4.7 mmol/L (3.5-5.1); Protein, Total 6.6 g/dL (5.8-8.1); Sodium 133 mmol/L (136-145)
[2018-02-12] MEDS: Mometasone 100 MCG HFA INHALER INH SCH ×3 (07:10→18:30)
[2018-02-12] MEDS: Vancomycin HCl 750 MG in Sodium Chloride 0.9% 250 ML 250 ML IVPB SCH ×2 (07:41→16:31)
[2018-02-12] MEDS: Multivitamin W/ Minerals 1 TAB PO SCH (07:44)
[2018-02-12] MEDS: Famotidine 20 MG TAB PO SCH ×2 (07:51→20:29)
[2018-02-12] MEDS: guaiFENesin ER 600 MG TAB PO SCH ×2 (07:51→20:29)
[2018-02-12] MEDS: Fluconazole 100 MG TAB PO SCH (08:06)
[2018-02-12] MEDS: Sodium Chloride 0.9% 1,000 ML IV SCH ×2 (08:09→15:59)
[2018-02-12] MEDS ORDERED: Non-Formulary Item 1 EACH (Fluticasone/Umeclidin/Vilanter [Trelegy Ellipta 100-62.5-25] 1 IH SCH (09:00)
[2018-02-12] MEDS ORDERED: Bisacodyl 10 MG SUPP PR PRN (09:05)
[2018-02-12] MEDS ORDERED: Sodium Chloride 3% (15 ML) NEB NEB PRN (09:17)
[2018-02-12] MEDS: Cefepime 2 GM in Sodium Chloride 0.9% 100 ML IVPB SCH ×2 (09:34→20:29)
--- NOTE | 2018-02-12 14:25 | CON ---
DATE OF CONSULTATION: 02/12/2018 SERVICE: Pulmonary Medicine. REASON FOR CONSULTATION: Respiratory failure. HISTORY OF PRESENT ILLNESS: Patient is a 67-year-old white male with past medical history significant for COPD. 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 Recently, he had evolution of a pulmonary mass, they were subjected to biopsy. The biopsy showed findings consistent with histoplasmosis. As such, he was initiated on appropriate therapy. He was recovering in the [facility]. At that location, chest x-rays continued to show improvement. That being said, patient clinically deteriorated. He was subsequently transitioned to the emergency department to undergo a CTA of the chest. On the CT, there were findings that were possibly consistent with chronic inflammatory lung changes like tuberculosis. I talked to the patient and apparently, he has never undergone a bronchoscopy. He denies any current fevers or chills. He is having increasing cough or sputum production. He had greater than 30-40 pounds of weight loss over the past year. He denies specifically having any night sweats or hemoptysis. PAST MEDICAL HISTORY: 1. COPD. 2. Histoplasmosis, currently being treated with fluconazole. 3. Rib fractures, multiple. 4. History of hemopneumothorax, status post chest tube placement and subsequent removal. 5. Major depressive disorder. 6. Osteoporosis. PAST SURGICAL HISTORY: 1. Mastoidectomy. 2. Chest tube placement with subsequent removal. 3. Biopsy of lung mass. ALLERGIES: LEVOFLOXACIN. MEDICATIONS: List of his inpatient medications were reviewed. No specific updates were made at this time. FAMILY HISTORY: Noncontributory. 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 He lives near [place], [place]. He denies any alcohol, tobacco or illicit drug use. No exposure to chemicals, dusts, asbestos or tuberculosis. REVIEW OF SYSTEMS: General, head, ears, eyes, nose, throat, cardiovascular, respiratory, GI, , musculoskeletal, neurologic and skin is negative except as mentioned in the HPI. PHYSICAL EXAMINATION: VITAL SIGNS: Afebrile. Pulse 73, blood pressure 121/68, respirations 20, saturation 91% on 3 liters nasal cannula. GENERAL: Patient is awake, alert, in no apparent distress. LUNGS: There is a reduced air entry with a prolonged expiratory phase. Wheezing and rhonchi are both present. I do not appreciate any crackles in dependent regions. HEART: Normal rate, regular. ABDOMEN: Soft, nontender, nondistended. Bowel sounds are positive. MUSCULOSKELETAL: No cyanosis or clubbing. No pitting in the bilateral lower extremities. NEUROLOGIC: Grossly nonfocal. LABORATORY DATA: WBC 12.2 and down trending from 22. Hemoglobin 11.0, platelets 773,000. Neutrophil count is 92% on top of 5 bands. Basic metabolic profile and liver function studies are essentially unremarkable. Lactate is negative x2, cardiac enzymes, and TSH are also unremarkable. Urinalysis is significant for 50 red blood cells. There are a few white blood cells and trace ketones also noted. Blood cultures x2 and urine culture are unremarkable. Initial AFB smear was not performed because there was insufficient amount of sputum to perform the analysis. IMAGING: CTA of the chest demonstrates no evidence of a pulmonary embolism. Multiple right-sided rib fractures are in various stages of healing. There is a pulmonary infiltrate at the left and right posterior base. There are scattered tree-in-bud opacifications throughout bilateral lung murillo. There is an area of bullitis in the right upper lobe. Extensive emphysematous changes are present throughout bilateral lung murillo. A patulous esophagus is noted. There is no significant reflux of contrast into the inferior vena cava. The right atrium and right ventricle are normal in size and appearance. The left atrium is small. ASSESSMENT: 1. Acute on chronic hypoxic respiratory failure. 2. Chronic obstructive pulmonary disease with acute exacerbation. 3. Healthcare-associated pneumonia. 4. Histoplasmosis lung disease. 5. Possible atypical infection. DISCUSSION AND PLAN: We will move forward with AFB smear and culture x3. If these are negative or the patient cannot generate a sufficient sputum, we will move forward with bronchoscopy to rule out the possibility of tuberculosis or other atypical organisms. At this point, my suspicion is that we are dealing with a case of bullitis/pneumonia that has resulted in his recent decompensation. That being said, we will sort this thing out over the next 24- 48 hours. Bronchoscopy will be scheduled for Wednesday if it is indicated. 70 minutes have been devoted to this patient in various activities. I personally reviewed all imaging studies and laboratory data noted within this document. For fifty percent of this time, I was interacting with the patient at the bedside or coordinating care with the care team. For the remainder of the time I was immediately available to the patient in the hospital unit. ARTURO
[2018-02-12 15:19] LABS: Vancomycin, Trough 14.9 ug/mL
--- NOTE | 2018-02-12 17:26 | PDOC.PN ---
- Subjective Encounter Start Date: 02/12/18 Encounter Start Time: 17:20 Subjective: f/u for HCAP, resp failure and COPD. Overall feeling ok. Had constipation -: earlier with successful BM. Still weak. - Objective Resuscitation Status: Resuscitation Status FULL:Full Resuscitation MAR Reviewed: Yes Vital Signs & Weight: Vital Signs (12 hours) Temp Pulse Resp BP Pulse Ox 02/12/18 13:37 98 22 H 92 L 02/12/18 11:43 98.7 F 73 20 121/68 91 L 02/12/18 08:00 97.8 F 114 H 18 156/98 H 94 L 02/12/18 07:06 104 H 20 92 L Weight Admit Weight 116 lb 13.52 oz Weight 116 lb 13.52 oz I&O: 02/11/18 02/12/18 02/13/18 06:59 06:59 06:59 Intake Total 2850 Output Total 550 Balance 2300 Result Diagrams: 02/12/18 04:44 02/12/18 04:44 Additional Labs: Microbiology 02/12/18 Unknown Sputum Acid Fast Bacilli Culture - Preliminary 02/11/18 16:02 Urine voided Urine Culture - Preliminary NO GROWTH AT 12 HOURS 02/11/18 15:55 Venous blood - Right Hand Blood Culture - Preliminary Specimen has been received and culture in progress. No Growth to date. 02/11/18 15:46 Venous blood - Left Arm Blood Culture - Preliminary Specimen has been received and culture in progress. No Growth to date. Laboratory Tests 02/11/18 02/11/18 02/11/18 15:46 15:46 15:46 WBC 22.2 H Hgb 11.3 L Plt Count 776 H Neutrophils % (Manual) 92 H Sodium 131 L Lactic Acid TSH 3rd Generation 4.0716 Vancomycin Trough 02/11/18 02/11/18 02/12/18 15:46 21:04 04:44 WBC Hgb Plt Count Neutrophils % (Manual) 92 H Sodium Lactic Acid 1.5 1.1 TSH 3rd Generation Vancomycin Trough 02/12/18 14:55 WBC Hgb Plt Count Neutrophils % (Manual) Sodium Lactic Acid TSH 3rd Generation Vancomycin Trough 14.9 Phys Exam - Physical Examination Constitutional: NAD frail, cachetic appearing, alert, responsive HEENT: PERRLA, sclera anicteric, oral pharynx no lesions Neck: no nodes, no JVD, supple, full ROM diminished bilat, occasional exp wheeze Cardiovascular: RRR, no significant murmur, no rub, gallop Gastrointestinal: soft, non-tender, no distention, positive bowel sounds Musculoskeletal: no edema, pulses present Neurological: normal sensation, moves all 4 limbs Psychiatric: normal affect, A&O x 3 Skin: no rash, normal turgor, cap refill <2 seconds Dx/Plan (1) Sepsis Code(s): A41.9 - SEPSIS, UNSPECIFIED ORGANISM Status: Acute Comment: Improved, continue Cefepime, Vancomycin and Cipro, appears to be element of Pseudomonas spp per sputum cx (2) HCAP (healthcare-associated pneumonia) Code(s): J18.9 - PNEUMONIA, UNSPECIFIED ORGANISM Status: Acute Comment: ? Pseudomonas spp, continue abx regimen as outlined in #1, pulmonary support, O2 via NC (3) Pulmonary cavitary lesion Code(s): J98.4 - OTHER DISORDERS OF LUNG Status: Acute Comment: Hx of Histoplasmosis on chronic Fluconazole, AFB x 3, Quantiferon-TB pending, respiratory isolation (4) Acute respiratory failure with hypoxia Code(s): J96.01 - ACUTE RESPIRATORY FAILURE WITH HYPOXIA Status: Acute Comment: Continue O2 support, wean as clinically indicated (5) Histoplasmosis pneumonia Code(s): B39.2 - PULMONARY HISTOPLASMOSIS CAPSULATI, UNSPECIFIED Status: Chronic Comment: Continue Fluconazole - Plan continue antibiotics, PT/OT, social work manager, respiratory therapy, out of bed/ ambulate, DVT proph w/SCDs Stable currently -: Continue Cefepime, Vancomycin and Ciprofloxacin -: Continue AFB x 3, Quantiferon-TB -: Continue Duonebs, Prednisone -: AM lab: BMP, CBC * .
[2018-02-13] MEDS: Vancomycin HCl 750 MG in Sodium Chloride 0.9% 250 ML 250 ML IVPB SCH ×3 (00:35→15:33)
[2018-02-13] MEDS: Acetaminophen/Codeine 30-300mg Tablet PO PRN ×5 (03:02→21:42)
[2018-02-13] MEDS: Ibuprofen 600 MG TAB PO SCH ×3 (05:11→21:42)
[2018-02-13 05:18] LABS: Anion Gap 9 mmol/L (10-20); BUN (Urea Nitrogen) 8 mg/dL (8.4-25.7); Calc. Creatinine Clearance 85 mL/min (70-130); Calcium 8.7 mg/dL (7.8-10.44); Carbon Dioxide 30 mmol/L (23-31); Chloride 99 mmol/L (98-107); Estimated GFR-MDRD Greater than 90; Glucose 107 mg/dL (80-115); Potassium 3.7 mmol/L (3.5-5.1); Sodium 134 mmol/L (136-145)
[2018-02-13 05:38] LABS: Band 10 % (5-11); Hemoglobin 10.1 g/dL (14.0-18.0); Lymphocytes 8 % (21-51); MDiff Complete? YES; Mean Corpuscular HGB CONC 30.6 g/dL (32.0-36.0); Mean Corpuscular Volume 98.1 fL (78.0-98.0); Mean Platelet Volume 6.5 fL (7.4-10.4); Monocytes 2 % (0-10); Neutrophil 80 % (42-75); Platelet Count 796 thou/uL (130-400); RBC Distribution Width 13.4 % (11.5-14.5); Red Blood Cell (RBC) Count 3.38 mill/uL (4.70-6.10); White Blood Cell (WBC) Count 16.1 thou/uL (4.8-10.8)
[2018-02-13] MEDS: Mometasone 100 MCG HFA INHALER INH SCH ×2 (07:00→19:04)
[2018-02-13] MEDS: Famotidine 20 MG TAB PO SCH ×2 (08:29→21:06)
[2018-02-13] MEDS: guaiFENesin ER 600 MG TAB PO SCH ×2 (08:29→21:05)
[2018-02-13] MEDS: predniSONE 20 MG TAB PO SCH (08:29)
[2018-02-13] MEDS: Fluconazole 100 MG TAB PO SCH ×2 (08:29→08:36)
[2018-02-13] MEDS: Multivitamin W/ Minerals 1 TAB PO SCH (08:36)
[2018-02-13] MEDS: Cefepime 2 GM in Sodium Chloride 0.9% 100 ML IVPB SCH ×2 (10:31→21:42)
[2018-02-13] MEDS: Sodium Chloride 0.9% 1,000 ML IV SCH (10:32)
--- NOTE | 2018-02-13 12:12 | PDOC.PN ---
- Subjective Encounter Start Date: 02/13/18 Encounter Start Time: 12:05 Subjective: f/u for sepsis, HCAP likely with pseudomonas spp and COPD. Currently -: being r/o for TB given RUL cavitary lesion. Feels a little better overall. -: Less cough. No fever. - Objective Resuscitation Status: Resuscitation Status FULL:Full Resuscitation MAR Reviewed: Yes Vital Signs & Weight: Vital Signs (12 hours) Temp Pulse Resp BP Pulse Ox 02/13/18 08:14 98.3 F 112 H 20 156/86 H 94 L 02/13/18 06:58 111 H 20 93 L Weight Admit Weight 116 lb 13.52 oz Weight 116 lb 13.52 oz I&O: 02/12/18 02/13/18 02/14/18 06:59 06:59 06:59 Intake Total 2850 2060 Output Total 550 800 Balance 2300 1260 Result Diagrams: 02/14/18 04:21 02/13/18 04:38 Additional Labs: Microbiology 02/12/18 Unknown Sputum Acid Fast Bacilli Culture - Preliminary 02/11/18 16:02 Urine voided Urine Culture - Preliminary NO GROWTH AT 12 HOURS 02/11/18 15:55 Venous blood - Right Hand Blood Culture - Preliminary Specimen has been received and culture in progress. No Growth to date. 02/11/18 15:46 Venous blood - Left Arm Blood Culture - Preliminary Specimen has been received and culture in progress. No Growth to date. Laboratory Tests 02/11/18 02/11/18 02/11/18 15:46 15:46 15:46 WBC 22.2 H Hgb 11.3 L Plt Count 776 H Neutrophils % (Manual) 92 H Sodium 131 L Lactic Acid TSH 3rd Generation 4.0716 Vancomycin Trough 02/11/18 02/11/18 02/12/18 15:46 21:04 04:44 WBC Hgb Plt Count Neutrophils % (Manual) 92 H Sodium Lactic Acid 1.5 1.1 TSH 3rd Generation Vancomycin Trough 02/12/18 14:55 WBC Hgb Plt Count Neutrophils % (Manual) Sodium Lactic Acid TSH 3rd Generation Vancomycin Trough 14.9 Phys Exam - Physical Examination frail, cachetic, alert HEENT: PERRLA, sclera anicteric, oral pharynx no lesions Neck: no nodes, no JVD, supple, full ROM diminished bilat S1, S2 Cardiovascular: RRR, no significant murmur, no rub, gallop Gastrointestinal: soft, non-tender, no distention, positive bowel sounds Musculoskeletal: no edema, pulses present Neurological: normal sensation, moves all 4 limbs Psychiatric: A&O x 3 Skin: no rash, normal turgor, cap refill <2 seconds Dx/Plan (1) Sepsis Code(s): A41.9 - SEPSIS, UNSPECIFIED ORGANISM Status: Acute Comment: Resolving, continue Cefepime, Vancomycin and Cipro, appears to be element of Pseudomonas spp per sputum cx (2) HCAP (healthcare-associated pneumonia) Code(s): J18.9 - PNEUMONIA, UNSPECIFIED ORGANISM Status: Acute Comment: Pseudomonas spp on sputum cx, continue abx regimen as outlined in #1, pulmonary support, O2 via NC (3) Pulmonary cavitary lesion Code(s): J98.4 - OTHER DISORDERS OF LUNG Status: Acute Comment: Hx of Histoplasmosis on chronic Fluconazole, AFB x 3, Quantiferon-TB pending, respiratory isolation (4) Acute respiratory failure with hypoxia Code(s): J96.01 - ACUTE RESPIRATORY FAILURE WITH HYPOXIA Status: Acute Comment: Continue O2 support, wean as clinically indicated (5) Histoplasmosis pneumonia Code(s): B39.2 - PULMONARY HISTOPLASMOSIS CAPSULATI, UNSPECIFIED Status: Chronic Comment: Continue Fluconazole (6) Physical deconditioning Code(s): R53.81 - OTHER MALAISE Status: Chronic Comment: PT for mobilization , transition back to inpt rehab after d/c - Plan continue antibiotics, PT/OT, social services designee, respiratory therapy, out of bed/ ambulate, DVT proph w/SCDs Stable overall -: Continue Vanc/Cefepime/Cipro -: Pulmonary support with Duonebs, Prednisone -: Continue Fluconazole -: Respiratory isolation pending AFB x 3 * AM lab: CBC
[2018-02-13] MEDS ORDERED: Saccharomyces boulardii 250 MG CAP PO SCH (12:30)
--- NOTE | 2018-02-13 17:12 | PRG ---
DATE OF SERVICE: 02/13/2018 SERVICE: Pulmonary Medicine. INTERVAL HISTORY: Patient is doing fine from a respiratory standpoint. He actually feels much violetta r. That being said, he is refusing physical therapy on 5 separate occasions when they come by. Othe rwise, his breathing is comfortable. He denies any current fevers, chills, nausea or vomiting. He i s not lightheaded when he is getting up. He just had a bowel movement. Otherwise, no interval cooper es occurred. PHYSICAL EXAMINATION: VITAL SIGNS: Afebrile, pulse 112, blood pressure 156/86, respirations 20, saturation 94% on 3 liters nasal cannula. GENERAL: Patient is awake, alert, no apparent distress. LUNGS: Excellent air entry. There is decreased air entry with a prolonged expiratory phase. Wheezi ng is present. Rhonchi are present as well. No crackles are appreciated. HEART: Normal rate, regular. ABDOMEN: Soft, nontender, nondistended. Bowel sounds are positive. MUSCULOSKELETAL: No cyanosis or clubbing. SKIN: Skin tenting throughout. No pitting. NEUROLOGIC: Grossly nonfocal. LABORATORY DATA: WBC 16.1, hemoglobin 10.1, platelets 796,000. Neutrophil count is 80% on top of 10 % bands. Basic metabolic profile is stable/improving with a sodium of 134. Vancomycin trough 14.9. AFB smear is negative on 04/05. Urine culture and blood culture remains negative. ASSESSMENT: 1. Acute on chronic hypoxic respiratory failure. 2. Chronic obstructive pulmonary disease with acute exacerbation. 3. Healthcare-associated pneumonia. 4. Histoplasmosis of the lung. 5. Possible tuberculosis. DISCUSSION AND PLAN: We will continue getting our AFB smear and culture. If all 3 are negative, our plan is to do a bronchoscopy tomorrow morning. 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 If iveth schroeder insists on doing absolutely nothing moving forward, palliative care consultation for consideration of hospice will be made.
[2018-02-14] MEDS: Vancomycin HCl 750 MG in Sodium Chloride 0.9% 250 ML 250 ML IVPB SCH ×4 (01:09→18:00)
[2018-02-14] MEDS: Acetaminophen/Codeine 30-300mg Tablet PO PRN ×5 (05:18→21:29)
[2018-02-14] MEDS: Ibuprofen 600 MG TAB PO SCH ×3 (05:18→22:21)
[2018-02-14 05:43] LABS: Band 2 % (5-11); Eosinophils 1 % (0-10); Hemoglobin 9.5 g/dL (14.0-18.0); Lymphocytes 13 % (21-51); MDiff Complete? YES; Mean Corpuscular HGB CONC 31.9 g/dL (32.0-36.0); Mean Corpuscular Hemoglobin 31.7 pg (27.0-31.0); Mean Corpuscular Volume 99.2 fL (78.0-98.0); Mean Platelet Volume 6.5 fL (7.4-10.4); Monocytes 6 % (0-10); Myelocyte 1 % (0-0); Neutrophil 76 % (42-75); PLT Morphology Comment Appears Increased; Platelet Count 737 thou/uL (130-400); RBC Distribution Width 13.5 % (11.5-14.5); Reactive Lymphocytes 1 % (0-10); Red Blood Cell (RBC) Count 3.01 mill/uL (4.70-6.10); White Blood Cell (WBC) Count 11.9 thou/uL (4.8-10.8)
[2018-02-14] MEDS: Mometasone 100 MCG HFA INHALER INH SCH ×2 (06:20→19:21)
[2018-02-14] MEDS: Sodium Chloride 0.9% 1,000 ML IV SCH (06:34)
[2018-02-14] MEDS: predniSONE 20 MG TAB PO SCH (08:08)
[2018-02-14] MEDS: guaiFENesin ER 600 MG TAB PO SCH ×2 (08:08→20:34)
[2018-02-14] MEDS: Fluconazole 100 MG TAB PO SCH (08:08)
[2018-02-14] MEDS: Multivitamin W/ Minerals 1 TAB PO SCH (08:08)
[2018-02-14] MEDS: Famotidine 20 MG TAB PO SCH ×2 (08:08→20:34)
[2018-02-14] MEDS: Saccharomyces boulardii 250 MG CAP PO SCH (08:08)
[2018-02-14] MEDS: Cefepime 2 GM in Sodium Chloride 0.9% 100 ML IVPB SCH ×2 (09:25→20:34)
--- NOTE | 2018-02-14 12:26 | PDOC.PN ---
- Subjective Encounter Start Date: 02/14/18 Encounter Start Time: 12:20 Subjective: f/u for HCAP, Sepsis with hx of histoplasmosis. Currently on Vanc/ Cefepime -: and Fluconazole. TB r/o in progress due to RUL cavitary lesion. - Objective Resuscitation Status: Resuscitation Status FULL:Full Resuscitation MAR Reviewed: Yes Vital Signs & Weight: Vital Signs (12 hours) Temp Pulse Resp BP Pulse Ox 02/14/18 12:06 101 H 18 96 02/14/18 08:16 98.1 F 101 H 24 H 150/91 H 96 02/14/18 08:00 96 02/14/18 06:18 111 H 20 95 Weight Admit Weight 116 lb 13.52 oz Weight 116 lb 13.52 oz I&O: 02/13/18 02/14/18 02/15/18 06:59 06:59 06:59 Intake Total 2060 2300 Output Total 800 1100 Balance 1260 1200 Result Diagrams: 02/14/18 04:21 02/13/18 04:38 Additional Labs: Microbiology 02/12/18 Unknown Sputum Acid Fast Bacilli Culture - Preliminary 02/11/18 16:02 Urine voided Urine Culture - Preliminary NO GROWTH AT 12 HOURS 02/11/18 15:55 Venous blood - Right Hand Blood Culture - Preliminary Specimen has been received and culture in progress. No Growth to date. 02/11/18 15:46 Venous blood - Left Arm Blood Culture - Preliminary Specimen has been received and culture in progress. No Growth to date. Laboratory Tests 02/11/18 02/11/18 02/11/18 15:46 15:46 15:46 WBC 22.2 H Hgb 11.3 L Plt Count 776 H Neutrophils % (Manual) 92 H Sodium 131 L Lactic Acid TSH 3rd Generation 4.0716 Vancomycin Trough 02/11/18 02/11/18 02/12/18 15:46 21:04 04:44 WBC Hgb Plt Count Neutrophils % (Manual) 92 H Sodium Lactic Acid 1.5 1.1 TSH 3rd Generation Vancomycin Trough 02/12/18 14:55 WBC Hgb Plt Count Neutrophils % (Manual) Sodium Lactic Acid TSH 3rd Generation Vancomycin Trough 14.9 Phys Exam - Physical Examination Constitutional: NAD frail, alert, cachetic HEENT: PERRLA, sclera anicteric, oral pharynx no lesions Neck: no nodes, no JVD, supple, full ROM diminished bilat Respiratory: no wheezing S1, S2 Cardiovascular: RRR, no significant murmur, no rub, gallop Gastrointestinal: soft, non-tender, no distention, positive bowel sounds generalized atrophy Musculoskeletal: no edema, pulses present Neurological: normal sensation, moves all 4 limbs Psychiatric: A&O x 3 Skin: normal turgor, cap refill <2 seconds Dx/Plan (1) Sepsis Code(s): A41.9 - SEPSIS, UNSPECIFIED ORGANISM Status: Acute Comment: Resolving, continue Cefepime, Vancomycin and Cipro, appears to be element of Pseudomonas spp per sputum cx (2) HCAP (healthcare-associated pneumonia) Code(s): J18.9 - PNEUMONIA, UNSPECIFIED ORGANISM Status: Acute Comment: Pseudomonas spp on sputum cx, continue abx regimen as outlined in #1, pulmonary support, O2 via NC (3) Pulmonary cavitary lesion Code(s): J98.4 - OTHER DISORDERS OF LUNG Status: Acute Comment: Hx of Histoplasmosis on chronic Fluconazole, AFB x 3, Quantiferon-TB pending, respiratory isolation, plan for bronchoscopy per Pulmonary in the next 24h (4) Acute respiratory failure with hypoxia Code(s): J96.01 - ACUTE RESPIRATORY FAILURE WITH HYPOXIA Status: Acute Comment: Continue O2 support, wean as clinically indicated (5) Histoplasmosis pneumonia Code(s): B39.2 - PULMONARY HISTOPLASMOSIS CAPSULATI, UNSPECIFIED Status: Chronic Comment: Continue Fluconazole (6) Physical deconditioning Code(s): R53.81 - OTHER MALAISE Status: Chronic Comment: PT for mobilization , transition back to inpt rehab after d/c - Plan continue antibiotics, PT/OT, 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
--- NOTE | 2018-02-14 14:53 | PRG ---
DATE OF SERVICE: 02/14/2018 SERVICE: Pulmonary Medicine. INTERVAL HISTORY: The patient is doing great from a respiratory standpoint. He is breathing comfort ably. His strength is improving. His color has improved significantly. We have cultures from [facility], which were suggestive of Pseudomonas growing in the sputum. This is our likely culprit in the bullae. That being said, he also has tree-in-bud opacifications and those infiltrates are not characteristic of a Pseudomonas infection. PHYSICAL EXAMINATION: VITAL SIGNS: Afebrile, pulse 80, blood pressure 136/55, respirations 18, saturation 97% on room air. GENERAL: The patient is awake and alert, in no apparent distress. LUNGS: Excellent air entry. There is no prolonged expiratory phase or wheezing present. HEART: Normal rate, regular. ABDOMEN: Soft, nontender, nondistended. Bowel sounds are positive. MUSCULOSKELETAL: No cyanosis or clubbing. There is no pitting in the bilateral lower extremities. NEUROLOGIC: Grossly nonfocal. LABORATORY DATA: WBC 11.9, hemoglobin 9.5, platelets 737,000. Band count has improved to 2%. Acid fast bacilli smear and culture is negative. He is not able to generate any more sputum. Blood cultu re x2 and urine culture are negative. ASSESSMENT: 1. Acute on chronic hypoxic respiratory failure. 2. Chronic obstructive pulmonary disease with acute exacerbation. 3. Healthcare-associated pneumonia secondary to Pseudomonas. 4. Histoplasmosis of the lung. 5. Possible tuberculosis versus other atypical infection. DISCUSSION AND PLAN: I do believe the cavitating lesion likely is bullitis. He will require a 4-wee k course of antibiotic directed at the Pseudomonas. Vancomycin can be interrupted. I still plan on bronching him. This is because he has tree-in-bud opacifications scattered throughout bilateral lung murillo in the right middle lobe and the lingula. These would be more characteristic of an atypical inflammatory pattern. I would like to see whether or not he has a coinfection with something other t olivia histoplasmosis. Pulmonary and Critical Care will continue to follow along. He is not generating sputum any longer, so we are going to bring him down for a bronchoscopy in the morning because our O R is completely booked for the day.
[2018-02-14 15:37] LABS: Vancomycin, Trough 28.3 ug/mL
[2018-02-15] MEDS: Acetaminophen/Codeine 30-300mg Tablet PO PRN ×4 (02:15→22:59)
[2018-02-15] MEDS: Sodium Chloride 0.9% 1,000 ML IV SCH ×2 (02:16→23:00)
[2018-02-15] MEDS: Vancomycin HCl 750 MG in Sodium Chloride 0.9% 250 ML 250 ML IVPB SCH ×4 (02:55→22:58)
[2018-02-15 06:07] LABS: Band 3 % (5-11); Eosinophils 1 % (0-10); Hemoglobin 9.8 g/dL (14.0-18.0); Lymphocytes 17 % (21-51); MDiff Complete? YES; Mean Corpuscular Hemoglobin 29.6 pg (27.0-31.0); Mean Corpuscular Volume 98.7 fL (78.0-98.0); Mean Platelet Volume 6.4 fL (7.4-10.4); Monocytes 13 % (0-10); Neutrophil 66 % (42-75); PLT Morphology Comment Appears Increased; Platelet Count 825 thou/uL (130-400); RBC Distribution Width 13.5 % (11.5-14.5); RBC Morphology Normal; Red Blood Cell (RBC) Count 3.31 mill/uL (4.70-6.10); White Blood Cell (WBC) Count 10.9 thou/uL (4.8-10.8)
[2018-02-15] MEDS: Ibuprofen 600 MG TAB PO SCH ×3 (06:22→22:59)
[2018-02-15] MEDS: Mometasone 100 MCG HFA INHALER INH SCH ×2 (07:12→19:29)
[2018-02-15] MEDS: Multivitamin W/ Minerals 1 TAB PO SCH ×2 (08:30→15:04)
[2018-02-15] MEDS: Fluconazole 100 MG TAB PO SCH ×2 (08:30→15:03)
[2018-02-15] MEDS: Famotidine 20 MG TAB PO SCH ×3 (08:30→21:20)
[2018-02-15] MEDS: guaiFENesin ER 600 MG TAB PO SCH ×3 (08:30→21:17)
[2018-02-15] MEDS: predniSONE 20 MG TAB PO SCH ×2 (08:31→15:04)
[2018-02-15] MEDS: Saccharomyces boulardii 250 MG CAP PO SCH ×2 (08:31→15:00)
[2018-02-15] MEDS ORDERED: EPINEPHrine 1 MG/ML AMP ONE (08:58)
[2018-02-15] MEDS ORDERED: EPINEPHrine 1 MG/10 ML Abboject SYRINGE ONE (08:58)
[2018-02-15] MEDS ORDERED: Lidocaine 1% (PF) 30 ML VIAL ONE (08:58)
[2018-02-15] MEDS ORDERED: Fentanyl 100 MCG/2 ML VIAL ONE ×4 (09:16→12:09)
[2018-02-15] MEDS ORDERED: Albuterol Sulfate 1.25 MG/3 ML NEB ONE ×2 (10:36→11:11)
[2018-02-15] MEDS ORDERED: Sodium Chloride For Inhalation 0.9% 3 ML NEB ONE ×2 (10:36→10:59)
--- NOTE | 2018-02-15 10:44 | PQF ---
CLINICAL DOCUMENTATION IMPROVEMENT CLARIFICATION FORM: ICD-10 Updated PLEASE DO AN ADDENDUM TO THE PROGRESS NOTE WITH ANY DOCUMENTATION UPDATES OR ADDITIONS AND CARRY THROUGH TO DC SUMMARY. THANK YOU. Date: 02/15/18; 02/16/18; 02/17/18 ATTN: Dr. Espino Please exercise your independent, professional judgment in responding to the clarification form. Clinical indicators are provided on the bottom of this form for your review Please check appropriate box(s): [ ] Protein Calorie Malnutrition: [ ] Mild [ ] Moderate [ ] Severe [ ] Other Malnutrition [ ] Underweight without malnutrition [ ] Cachexia [ ] Other diagnosis [ ] Unable to determine In addition, please specify: Present on Admission (POA): [ ] Yes [ ] No [ ] Unable to determine CLINICAL INDICATORS - SIGNS / SYMPTOMS / LABS H&P 02/11: 67 YO , CACHECTIC, FRAIL APPEARING. GENERALIZED SEVERE MUSCLE ATROPHY NOTED. MINIMAL EDEMA AT THE ANKLES. PULMONOLOGY CONSULT 02/12: HE HAD GREATER THAN 30-40 POUNDS OF WEIGHT LOSS OVER THE PAST YEAR. RISKS: H&P: LAST 48 HRS, HE HAS NOTED DECREASING APPETITE, INCREASED FATIGUE, INCREASING SOB, & GENERAL WEAKNESS. HX COPD/ EMPHYSEMA. HISTOPLASMOSIS. SEPSIS. HEALTHCARE-ASSOCIATED PNEUMONIA. R UPPER LOBE CAVITARY LESION. MULTIPLE RIB FRACTURES S/P FALL. TREATMENT: PILLOWCASE TURNER ASSESSMENT TRIGGERED FOR WTL/PO/ BMI 15.0 ORDER 02/12: SUPPLEMENT: ENSURE ENLIVE TID Moderate Malnutrition (in acute illness) Energy Intake: <75% of estimated energy requirement for > 7 days Weight Loss: 1-2%/1 week; 5%/ 1 month; 7.5%/3 months Other: mild body fat loss; mild muscle mass loss; mild fluid accumulation; Severe Malnutrition (in acute illness) Energy Intake: < 50% of estimated energy requirement for > 5 days Weight Loss: >1-2%/1 week; >5%/1 month; >7.5%/3 months Other: moderate body fat loss; moderate muscle mass loss; moderate- severe fluid accumulation; 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 service strength Moderate Malnutrition (in chronic illness) Energy Intake: <75% of estimated energy requirement for >1 month Weight Loss: 5%/1 month; 7.5%/3 months; 10%/6 months; 20%/1 year Other: mild body fat loss; mild muscle mass loss; mild fluid accumulation Severe Malnutrition (in chronic illness) Energy Intake: <75% of estimated energy requirement for >1 month Weight Loss: >5%/1 month; >7.5%/3 months; >10%/6 months; >20%/1 year Other: severe body fat loss; severe muscle mass loss; severe fluid accumulation; 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 service strength Thank you, Ana Maria (This form is maintained as a part of the permanent medical record) 2015 [employer] All Rights Reserved Ana Maria Castle RN, BSN [email or web address] Office: [phone] [facility] HEALTH NETWORKJanee
[2018-02-15] MEDS ORDERED: HYDROmorphone 2 MG/ML VIAL ONE (12:05)
--- NOTE | 2018-02-15 12:35 | RAD ---
CHEST UPRIGHT PORTABLE 1 VIEW: HISTORY: A 67-year-old male with a history of cough, possible TB activity. COMPARISON: 02/11/2018, post procedure. FINDINGS: Again noted are cavitary parenchymal changes in the right upper lobe. There appear to be somewhat pr ogressive interstitial and reticulonodular parenchymal changes in the mid and lower lung zones bilate rally when compared to the prior study. No pneumothorax or significant pleural effusion. Multiple r ight rib fractures which appear healed. IMPRESSION: Hyperinflation and chronic lung changes with some progressive interstitial and reticulonodular parenc hymal changes in the mid and lower lung zones. Stable-appearing apices. Marked atherosclerosis of t he aorta with ectasia. No pneumothorax or other significant new process. POS: C
[2018-02-15 12:57] LABS: BF Color Red; BF WBC/Nonhematics Ct. - Manua 3150 /cumm; Body Fluid Source Bronchial Washings; Clarity Cloudy/Turbid (Clear); Tube # EDTA
[2018-02-15 13:13] LABS: BF Color Pink; BF WBC/Nonhematics Ct. - Manua 8250 /cumm; Body Fluid Source Bronchial Washings; Clarity Cloudy/Turbid (Clear); Tube # EDTA
[2018-02-15] MEDS: Cefepime 2 GM in Sodium Chloride 0.9% 100 ML IVPB SCH ×2 (13:36→21:17)
[2018-02-15 14:04] LABS: BF Segmented Neutrophils 96 %; Lymphocytes 4 %
[2018-02-15 14:06] LABS: BF Segmented Neutrophils 90 %; Cell Count Non Hematic 3 %; Lymphocytes 7 %
--- NOTE | 2018-02-15 15:17 | PRG ---
DATE OF SERVICE: 02/15/2018 SERVICE: Pulmonary Medicine. INTERVAL HISTORY: The patient is doing really well from a respiratory standpoint. He denies any cur rent chest pain, fevers or chills. He underwent bronchoscopy today. We took a BAL in the right uppe r lobe and in the lingula. As such, the chest x-ray done after the procedure demonstrated new infilt rates in both of those regions. This is . This is not a worsening of his inflammatory profile. Either way, he tolerated the procedure fairly well and hopefully we were able to collect the inform ation we are looking for. PHYSICAL EXAMINATION: VITAL SIGNS: Afebrile, pulse 120, blood pressure 130/84, respirations 18, saturation 94% on 3 liters nasal cannula. GENERAL: The patient is awake and alert, in no apparent distress. LUNGS: Decreased air entry. There is a prolonged expiratory phase. Wheezing is present. I note so me crackles as well. Rhonchi clear with cough. HEART: Normal rate, regular. ABDOMEN: Soft, nontender, nondistended. Bowel sounds are positive. MUSCULOSKELETAL: No cyanosis or clubbing. There is no pitting in the bilateral lower extremities. NEUROLOGIC: Grossly nonfocal. LABORATORY DATA: WBC 10.9, hemoglobin 9.8, platelets 825,000 and up trending. Neutrophil count is 6 6% on top of 3% neutrophils. Lymphocyte count and monocyte count are both rebounding. Basic metabol ic profile is otherwise unremarkable. Both BALs have 90%-96% neutrophils and a lymphocytes. Nonhema tologic cells are essentially not present. Moderate white blood cells without organisms are identifi ed in both gram stains. AFB smear is currently pending. IMAGING: Chest x-ray demonstrates persistent lung infiltrates throughout bilateral lung murillo. It is interval worsening in the right apical region and in the left mid lung zone obscuring the heart nichelle rder, because of the BAL that we performed. ASSESSMENT: 1. Acute on chronic hypoxic respiratory failure. 2. Chronic obstructive pulmonary disease with acute exacerbation. 3. Healthcare-associated pneumonia secondary to Pseudomonas. 4. Histoplasmosis of the lung. 5. Possible atypical infection of the lung. DISCUSSION AND PLAN: The right upper lobe lesion is going to need to be treated as a bullitis. Four weeks of antibiotics directed at the Pseudomonas organism is indicated. Airborne precautions will b e discontinued if these AFBs are negative x2. I will have the patient return to see me in the outpat ient setting in roughly 6 weeks to follow up the results of the cultures. We will certainly have him back sooner if something comes up sooner. Pulmonary and Critical Care will continue to follow along while the patient remains in house, but assuming all goes well, he will be a candidate for transitio n out of the hospital tomorrow. I do think that initiating physiotherapy in the outpatient setting i s warranted because of the degree of purulent secretions that were noted within this man's chest.
--- NOTE | 2018-02-15 15:30 | PDOC.PN ---
- Subjective Encounter Start Date: 02/15/18 Encounter Start Time: 15:00 Feels ok. No specific complaints. He reports that he has been losing weight for the past year, but increased in the past several months. - Objective Resuscitation Status: Resuscitation Status FULL:Full Resuscitation Vital Signs & Weight: Vital Signs (12 hours) Temp Pulse Resp BP BP Pulse Ox 02/15/18 14:15 98.1 F 120 H 18 130/84 94 L 02/15/18 13:40 98.1 F 122 H 26 H 126/86 92 L 02/15/18 11:40 119 H 02/15/18 07:40 98.7 F 100 18 148/94 H 96 02/15/18 07:12 110 H 14 Weight Admit Weight 116 lb 13.52 oz Weight 116 lb 13.52 oz I&O: 02/14/18 02/15/18 02/16/18 06:59 06:59 06:59 Intake Total 2300 1980 Output Total 1100 2200 Balance 1200 -220 Result Diagrams: 02/15/18 04:21 02/13/18 04:38 Radiology Reviewed by me: Yes Phys Exam - Physical Examination Constitutional: NAD Very thin Scattered wheezing and rales. Cardiovascular: RRR, no significant murmur, no rub Gastrointestinal: soft, non-tender, no distention, positive bowel sounds Musculoskeletal: no edema Neurological: non-focal Psychiatric: normal affect, A&O x 3 Dx/Plan (1) Acute respiratory failure with hypoxia Code(s): J96.01 - ACUTE RESPIRATORY FAILURE WITH HYPOXIA Status: Acute Comment: Continue O2 support, wean as clinically indicated (2) HCAP (healthcare-associated pneumonia) Code(s): J18.9 - PNEUMONIA, UNSPECIFIED ORGANISM Status: Acute Comment: Pseudomonas spp on sputum cx, continue abx regimen as outlined in #1, pulmonary support, O2 via NC (3) Pulmonary cavitary lesion Code(s): J98.4 - OTHER DISORDERS OF LUNG Status: Acute Comment: Hx of Histoplasmosis on chronic Fluconazole, AFB x 3, Quantiferon-TB pending, respiratory isolation, plan for bronchoscopy per Pulmonary in the next 24h (4) Sepsis Code(s): A41.9 - SEPSIS, UNSPECIFIED ORGANISM Status: Acute Comment: Resolving, continue Cefepime, Vancomycin and Cipro, appears to be element of Pseudomonas spp per sputum cx (5) Histoplasmosis pneumonia Code(s): B39.2 - PULMONARY HISTOPLASMOSIS CAPSULATI, UNSPECIFIED Status: Chronic Comment: Continue Fluconazole (6) Physical deconditioning Code(s): R53.81 - OTHER MALAISE Status: Chronic Comment: PT for mobilization , transition back to inpt rehab after d/c - Plan * On Vanc, cefepime, Cipro and Diflucan. * Significant purulent fluid on bronch. Abundant WBC on stain. Cx pending. * Severe bronchiectasis on bronch. * Quantiferon gold pending. At risk due to travel to [place] during the refugee crisis there. Discussed with Pulm. Suspect not TB.
[2018-02-15] MEDS ORDERED: ePHEDrine/0.9% NaCl/PF SYRINGE 50 mg/10 ml ONE (16:21)
[2018-02-15] MEDS ORDERED: PHENYLEPHRINE-NS 100 MCG/ML 10 ML SYRINGE ONE (16:21)
[2018-02-15] MEDS ORDERED: PROPOFOL 200 MG/20 ML VIAL ONE (16:21)
[2018-02-15] MEDS ORDERED: Lidocaine 1% PF 5 ML VIAL ONE (16:21)
--- NOTE | 2018-02-15 19:57 | OP ---
DATE OF PROCEDURE: 02/15/2018 SERVICE: Pulmonary Medicine. PROCEDURES: Fiberoptic bronchoscopy with: 1. Visual airway inspection. 2. BAL of the right upper lobe. 3. BAL of the lingula. PREOPERATIVE DIAGNOSES: 1. Acute on chronic hypoxic respiratory failure. 2. Pulmonary infiltrate. POSTPROCEDURE DIAGNOSES: 1. Acute on chronic hypoxic respiratory failure. 2. Pulmonary infiltrate. PROCEDURE MICA MACHINE OPERATOR: Michael Albright M.D. MEDICATIONS USED: For list of medications during the procedure, please refer to anesthesia documenta tion. PREANESTHESIA ASSESSMENT: H&P had been performed. The patient's medications and allergies were revi ewed. Informed consent was obtained after discussing the risks, benefits, and rationale for performi ng the procedure as well as alternative options. DESCRIPTION OF PROCEDURE: A timeout was performed identifying the correct procedure and patient with name and date of . A diagnostic fiberoptic bronchoscope was introduced through the 8.5 endotra cheal tube. The bronchoscope was advanced into the trachea where a tracheobronchial tree inspection was carried out with clear identification of the right upper lobe, right middle lobe, right lower lob e, left upper lobe, lingula, and left lower lobe. The mucosa was extremely friable throughout bilate ral lung murillo. Purulent secretions were extremely copious, and thick. Significant amount of sucti oning had to occur in order to perform the survey. Ultimately, anatomy was normal to the segmental l evel without endobronchial disease. A bronchioalveolar lavage was subsequently obtained from the rig ht upper lobe, apical segment, and the lingula. Hemostasis was verified and the bronchoscope was sub sequently removed from the patient. Post-procedure fluoroscopy did not demonstrate a pneumothorax. FINDINGS: 1. Secretions were extremely heavy and had a dark yellow to pale green color. 2. No endobronchial disease was identified. 3. Mucosa was extremely friable throughout the entire lung. SPECIMENS OBTAINED: 1. BAL from right upper lobe for Cytology and Microbiology. 2. BAL from the lingula for microbiology. COMPLICATIONS: None. ESTIMATED BLOOD LOSS: Less than 2 mL FLUOROSCOPY TIME: None. DISPOSITION: Patient will recover in the postanesthesia care unit. Once he meets criteria, he will be transitioned back to the medical floor.
[2018-02-15 21:24] LABS: Vancomycin, Trough 22.3 ug/mL
[2018-02-16] MEDS: Acetaminophen/Codeine 30-300mg Tablet PO PRN ×5 (03:16→21:44)
[2018-02-16] MEDS: Ibuprofen 600 MG TAB PO SCH ×3 (05:28→20:42)
[2018-02-16] MEDS: Vancomycin HCl 750 MG in Sodium Chloride 0.9% 250 ML 250 ML IVPB SCH ×2 (05:28→13:11)
[2018-02-16] MEDS: Mometasone 100 MCG HFA INHALER INH SCH ×2 (06:40→18:33)
[2018-02-16] MEDS: predniSONE 20 MG TAB PO SCH (08:04)
[2018-02-16] MEDS: Cefepime 2 GM in Sodium Chloride 0.9% 100 ML IVPB SCH (08:07)
[2018-02-16] MEDS: guaiFENesin ER 600 MG TAB PO SCH ×2 (08:08→20:41)
[2018-02-16] MEDS: Fluconazole 100 MG TAB PO SCH (08:09)
[2018-02-16] MEDS: Famotidine 20 MG TAB PO SCH (08:12)
[2018-02-16] MEDS: Multivitamin W/ Minerals 1 TAB PO SCH (08:12)
[2018-02-16] MEDS: Saccharomyces boulardii 250 MG CAP PO SCH (08:12)
--- NOTE | 2018-02-16 13:39 | PRG ---
DATE OF SERVICE: 02/16/2018 SERVICE: Pulmonary Medicine INTERVAL HISTORY: The patient is doing really well from a respiratory standpoint. He actually feels like his breathing is much better. He has got more energy today. Otherwise, there has been no inte rval change to his condition. PHYSICAL EXAMINATION: VITAL SIGNS: Afebrile, pulse 104, blood pressure 149/89, respirations 20, saturation 98% on 2 liters nasal cannula. GENERAL: The patient is awake, alert, in no apparent distress. LUNGS: Improved air entry. Rhonchi are present. There is a prolonged expiratory phase with minimal expiratory wheezing, particularly with forced exhalation. HEART: Normal rate, regular. ABDOMEN: Soft, nontender, nondistended. Bowel sounds are positive. MUSCULOSKELETAL: No cyanosis or clubbing. There is no pitting in the bilateral lower extremities. NEUROLOGIC: Grossly nonfocal. LABORATORY DATA: WBC 10.9, hemoglobin 9.8, platelets 825,000, continuing to trend upward. Band coun t is low, and the neutrophil count has returned to the normal range. Acid fast smear from 2 separate BALs are both negative for acid fast bacilli on concentrated specimen. ASSESSMENT: 1. Acute on chronic hypoxic respiratory failure. 2. Chronic obstructive pulmonary disease with acute exacerbation. 3. Bronchiectasis with acute exacerbation. 4. Healthcare-associated pneumonia secondary to Pseudomonas, plus or minus methicillin-resistant Sta phylococcus aureus. 5. Histoplasmosis of the lung. 6. Possible superimposed atypical infection. DISCUSSION AND PLAN: From my perspective, the patient will need 4 weeks of antibiotic therapy direct ed at his lung infection. AFB smears are negative. As such, I think it is reasonable for him to tra nsition back to a [facility] facility[facility] center to continue pursuing aggressive reha bilitation. I will continue to follow along if the patient remains in house. At this point, we will arrange for him to follow up with me in clinic in 6-8 weeks in the outpatient setting, so that we ca n finalize the AFB cultures which can take up to 6 weeks to finalize.
--- NOTE | 2018-02-16 16:40 | PDOC.PN ---
- Subjective Encounter Start Date: 02/16/18 Encounter Start Time: 13:30 Feels very well. Happy to know the smears are negative and he can go back to the facility. Was doing very well with pulmonary rehab in past. - Objective Resuscitation Status: Resuscitation Status FULL:Full Resuscitation Vital Signs & Weight: Vital Signs (12 hours) Temp Pulse Resp BP Pulse Ox Pulse Ox Pulse Ox 02/16/18 12:45 99.0 F 104 H 20 149/89 H 96 02/16/18 11:45 109 H 18 98 02/16/18 09:40 94 L 89 L 02/16/18 08:35 98.6 F 106 H 24 H 134/85 92 L 02/16/18 08:00 98.6 F 106 H 92 L 02/16/18 06:10 91 14 98 Pulse Ox 02/16/18 12:45 02/16/18 11:45 02/16/18 09:40 93 L 02/16/18 08:35 02/16/18 08:00 02/16/18 06:10 Weight Admit Weight 116 lb 13.52 oz Weight 116 lb 13.52 oz I&O: 02/15/18 02/16/18 02/17/18 06:59 06:59 06:59 Intake Total 1980 1830 240 Output Total 2200 1550 Balance -220 280 240 Result Diagrams: 02/15/18 04:21 02/13/18 04:38 Phys Exam - Physical Examination Constitutional: NAD Scattered rales. Less wheezes. Cardiovascular: RRR, no significant murmur Gastrointestinal: soft, non-tender, no distention Musculoskeletal: no edema Psychiatric: normal affect, A&O x 3 Skin: normal turgor Deviation from normal: Right chest tube exit site looks good. Minimal erythema. No drng. Dx/Plan (1) Acute respiratory failure with hypoxia Code(s): J96.01 - ACUTE RESPIRATORY FAILURE WITH HYPOXIA Status: Acute Comment: Continue O2 support, wean as clinically indicated (2) HCAP (healthcare-associated pneumonia) Code(s): J18.9 - PNEUMONIA, UNSPECIFIED ORGANISM Status: Acute Comment: Pseudomonas spp on sputum cx, PO Cipro. He does not tolerate Levaquin well. (3) Pulmonary cavitary lesion Code(s): J98.4 - OTHER DISORDERS OF LUNG Status: Acute Comment: Hx of Histoplasmosis on chronic Fluconazole, AFB x 3, Quantiferon-TB pending, Smears negative x 3. (4) Sepsis Code(s): A41.9 - SEPSIS, UNSPECIFIED ORGANISM Status: Acute Comment: Converting to oral regimen to cover the pseudomonas fromt he sputum cx, diflucan. (5) Histoplasmosis pneumonia Code(s): B39.2 - PULMONARY HISTOPLASMOSIS CAPSULATI, UNSPECIFIED Status: Chronic Comment: Continue Fluconazole (6) Physical deconditioning Code(s): R53.81 - OTHER MALAISE Status: Chronic Comment: PT for mobilization , transition back to inpt rehab after d/c (7) MRSA (methicillin resistant Staphylococcus aureus) infection Code(s): A49.02 - METHICILLIN RESIS STAPH INFECTION, UNSP SITE Status: Acute Comment: Right chest tube removal site. Looks good now. Has had full week of therapy. - Plan * Switch to oral regimen of abx today. Anticipate discharge tomorrow.
[2018-02-16] MEDS: Ciprofloxacin 500 MG TAB PO SCH (20:41)
[2018-02-16 21:18] LABS: Vancomycin, Trough 17.6 ug/mL
[2018-02-17] MEDS: Acetaminophen/Codeine 30-300mg Tablet PO PRN ×4 (03:26→18:09)
[2018-02-17] MEDS: Ibuprofen 600 MG TAB PO SCH ×2 (05:23→15:40)
[2018-02-17] MEDS: Ciprofloxacin 500 MG TAB PO SCH (05:23)
[2018-02-17] MEDS: Mometasone 100 MCG HFA INHALER INH SCH ×2 (05:56→19:41)
[2018-02-17] MEDS: predniSONE 20 MG TAB PO SCH (08:58)
[2018-02-17] MEDS: guaiFENesin ER 600 MG TAB PO SCH (09:00)
[2018-02-17] MEDS: Multivitamin W/ Minerals 1 TAB PO SCH (09:00)
[2018-02-17] MEDS: Saccharomyces boulardii 250 MG CAP PO SCH (09:00)
--- NOTE | 2018-02-17 13:00 | PRG ---
DATE OF SERVICE: 02/17/2018 SERVICE: Pulmonary Medicine. INTERVAL HISTORY: The patient is doing great from respiratory standpoint. He is breathing comfortab ly. There has been no interval change to his condition. denies any current chest pain, fevers, chill s, shortness of breath. Otherwise, there has been no interval change. Nursing reports no overnight events. PHYSICAL EXAMINATION: VITAL SIGNS: Afebrile, pulse 85, blood pressure 163/76, respirations 20, saturation 94% on 3 liters nasal cannula. GENERAL: The patient is awake, alert, no apparent distress. LUNGS: Decent air entry. There is no prolonged expiratory phase. Rhonchi are actually quite a bit better. No crackles. HEART: Normal rate, regular. ABDOMEN: Soft, nontender, nondistended. Bowel sounds are positive. MUSCULOSKELETAL: No cyanosis or clubbing. No pitting in the bilateral lower extremities. NEUROLOGIC: Grossly nonfocal. LABORATORY DATA: All microbiology studies from the lungs are negative to date. ASSESSMENT: 1. Acute on chronic hypoxic respiratory failure. 2. Chronic obstructive pulmonary disease with acute exacerbation. 3. Bronchiectasis with acute exacerbation. 4. Healthcare-associated pneumonia secondary to Pseudomonas. 5. Histoplasmosis of the lung. 6. Possible atypical infection. DISCUSSION AND PLAN: The patient will require 4 weeks of antibiotics directed at the Pseudomonas, an d 10 days of antibiotics directed at the chest tube site infection. From my perspective, he is stabl e for transition out of the hospital back to his rehabilitation facility. I will have him return to clinic to see me in 6 weeks with a preclinic chest x-ray. Physiotherapy will be paramount to prevent ing disease recurrence through time. In the outpatient setting, we will see if we can set him up wit h more effective physiotherapy, but we need to get his ribs some more time to heal.
[2018-02-17] MEDS ORDERED: Fluconazole 100 MG TAB PO SCH (14:00)
[2018-02-17] MEDS ORDERED: Ciprofloxacin 500 MG TAB PO SCH ×6 (14:15→20:00)
[2018-02-17 19:59] VITALS: BP 136/84; TEMP 98
== END 2018-02-17 20:10 | DRG 871 ==
LOC: ERS 14:44 → T4-A 17:45
PROVIDERS: ADMIT Emergency Medicine; ATTEND Emergency Medicine
PROC: 0B9C8ZX Drainage of Right Upper Lung Lobe, Via Natural or Artificial Opening Endoscopic, Diagnostic (ICD-10-PCS; principal; 2018-02-15)
PROC: 0BD98ZX Extraction of Lingula Bronchus, Via Natural or Artificial Opening Endoscopic, Diagnostic (ICD-10-PCS; 2018-02-15)
DX: A41.9 Sepsis, unspecified organism (principal); B39.2 Pulmonary histoplasmosis capsulati, unspecified; J96.21 Acute and chronic respiratory failure with hypoxia; J15.1 Pneumonia due to Pseudomonas; R64 Cachexia; Z68.1 Body mass index [BMI] 19.9 or less, adult; J44.0 Chronic obstructive pulmonary disease with (acute) lower respiratory infection; J44.1 Chronic obstructive pulmonary disease with (acute) exacerbation; J47.1 Bronchiectasis with (acute) exacerbation; R65.20 Severe sepsis without septic shock; F32.9 Major depressive disorder, single episode, unspecified; M81.0 Age-related osteoporosis without current pathological fracture; Z88.8 Allergy status to other drugs, medicaments and biological substances; Y95 Nosocomial condition; S22.39XD Fracture of one rib, unspecified side, subsequent encounter for fracture with routine healing; W19.XXXD Unspecified fall, subsequent encounter; K59.00 Constipation, unspecified
CPT/HCPCS: 36415; 71045; 80048; 80053; 80202; 81003; 81015; 82553; 83605; 83690; 84443; 84484; 85007; 85025; 85027; 85060; 86480; 87040; 87070; 87086; 87102; 87116; 87205; 87206; 88112; 88305; 88312; 89051; 90471; 90662; 94640; 94660; 94667; 94668; 96361; 96365; 96368; 96375; G0008; G8978-GP-CK; G8979-GP-CI; J0171; J0692; J0744; J1170; J2001; J2543; J2704; J2920; J2930; J3010; J3370; J7050; J7506; J7620

== ENCOUNTER 2018-04-12 12:41 | Inpatient (IN) | payer BC, MEDICARE ==
[2018-04-12 14:42] VITALS: BMI 14.8
[2018-04-12] MEDS ORDERED: Ondansetron ODT 4 MG TAB PO PRN (15:43)
[2018-04-12] MEDS ORDERED: Ondansetron PF 4 MG/2 ML Vial IVP PRN (15:43)
[2018-04-12] MEDS ORDERED: Acetaminophen 325 MG TAB PO PRN (15:43)
[2018-04-12] MEDS ORDERED: Acetaminophen 650 MG Suppository PR PRN (15:43)
[2018-04-12] MEDS ORDERED: Albuterol Sulfate 2.5 mg/3 ml Neb NEB PRN (15:43)
[2018-04-12] MEDS ORDERED: Polyethylene Glycol 3350 17 GM Packet PO PRN (15:43)
[2018-04-12] MEDS ORDERED: Acetaminophen/Codeine 30-300mg Tablet PO PRN (15:43)
[2018-04-12] MEDS: Morphine 2 MG/ML SYRINGE SLOW IVP PRN ×2 (16:06→20:16)
[2018-04-12] MEDS: methylPREDNISolone Sod Succ 40 MG VIAL IVP SCH ×2 (16:06→21:39)
[2018-04-12] MEDS ORDERED: Enoxaparin Sodium 40 MG/0.4 ML SYRINGE SC SCH (18:00)
[2018-04-12] MEDS: Cefepime 2 GM in Sodium Chloride 0.9% 100 ML IVPB SCH (18:01)
[2018-04-12] MEDS: Mometasone/Formoterol 120 PUFF INHALER INH SCH (20:03)
[2018-04-12] MEDS ORDERED: Prevnar 13-Val Conj/PF 0.5 ML SYRINGE IM ONE (21:00)
[2018-04-12] MEDS: guaiFENesin ER 600 MG TAB PO SCH (21:39)
[2018-04-12] MEDS: Famotidine 20 MG TAB PO SCH (21:40)
[2018-04-12] MEDS: Ibuprofen 600 MG TAB PO SCH (21:40)
[2018-04-12] MEDS: Clarithromycin 500 MG TAB PO SCH (22:05)
[2018-04-12] MEDS: Acetaminophen/Codeine 30-300mg Tablet PO PRN (22:09)
[2018-04-13] MEDS: Morphine 2 MG/ML SYRINGE SLOW IVP PRN ×4 (00:07→20:58)
[2018-04-13] MEDS: Tobramycin Sulfate 0.3 GM in Sodium Chloride 0.9% 7.5 ML NEB SCH ×3 (00:11→22:00)
--- NOTE | 2018-04-13 00:20 | CON ---
DATE OF CONSULTATION: 04/12/2018 This encompassed 50 minutes times of that, greater than 50% was spent with the patient and/or the patient's unit in the hospital. Extensive review of his records was made at the time of this dictation, history and physical was not available for review. HISTORY OF PRESENT ILLNESS: This gentleman presented with right-sided chest discomfort to the [facility] earlier today. He gives a history of a fall on his chest, back in the fall where he broke several ribs, he developed extensive pneumonia in the right chest from what I understand. He also was diagnosed with a lung nodule last summer that was biopsied and was found to be histoplasmosis and he has been on treatment with fluconazole for that. In the remote past, he has had a fall, sustaining a hydropneumothorax on the right. He has lost a considerable amount of weight. He has not had any fever or night sweats. He has had no hemoptysis. PAST MEDICAL HISTORY: 1. COPD. 2. Histoplasmosis. 3. Hemopneumothorax. 4. Depression. 5. Osteoporosis. PAST SURGICAL HISTORY: 1. Mastoidectomy. 2. Chest tube placement. 3. Biopsy of lung mass. ALLERGIES: LEVAQUIN. MEDICATIONS: Prior to admission, these were listed on the chart and include, 1. Multivitamin. 2. DuoNeb. 3. Motrin. 4. Trelegy Ellipta 1 puff daily. 5. Fluconazole unknown dose 2 tabs daily. 6. Albuterol HFA. 7. Acetaminophen with Codeine. 8. Guaifenesin. 9. Sertraline. 10. Polyethylene glycol. Current inpatient medications were reviewed, notable medications include; 1. Cefepime. 2. Clarithromycin and tobramycin nebulization solution. 3. He is also on DuoNeb and methylprednisolone. SOCIAL HISTORY: The patient has a distant history of smoking cigarettes. He quit some time ago, prior to that he smoked several packs a day. 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 He lives between [place] and [place], [place]. REVIEW OF SYSTEMS: Otherwise negative except as mentioned above. PHYSICAL EXAMINATION: VITAL SIGNS: Temperature 98.0, pulse 101, respirations 16, O2 saturation 93%, blood pressure 170/102. GENERAL: He is a thin male, who is 6 feet 2 inches, weighs 115 pounds. HEENT: Pupils react. Sclerae anicteric. Oropharynx clear. NECK: No JVD. LUNGS: He has diminished breath sounds on the right compared to the left. CARDIAC: S1 and S2 regular without murmur. ABDOMEN: Soft and nontender. EXTREMITIES: No clubbing, cyanosis, or edema. He has severe muscle wasting. LABORATORY DATA: His sodium is 137, potassium 4.5, chloride 92, CO2 of 30, BUN 23, creatinine 1.1, calcium 10.2. White blood cell count , hematocrit 40, platelet count 566. A chest x-ray report from [facility] discusses a right lower lobe infiltrate. I have not been able to see that film as it did not come with him. ASSESSMENT: 1. Right lower lobe pneumonia versus bronchiectasis versus chronic obstructive pulmonary disease exacerbation. 2. Severe cachexia. PLAN: I agree with the proposed treatment of antibiotics, nebulization treatments, and steroids. I will try to obtain an x-ray for review. Otherwise, we can just repeat one in the hospital tomorrow morning. Job ID: [id number]
[2018-04-13] MEDS: methylPREDNISolone Sod Succ 40 MG VIAL IVP SCH ×4 (04:09→20:52)
[2018-04-13] MEDS: Ibuprofen 600 MG TAB PO SCH ×3 (06:14→20:53)
[2018-04-13] MEDS: Cefepime 2 GM in Sodium Chloride 0.9% 100 ML IVPB SCH ×2 (06:18→18:18)
--- NOTE | 2018-04-13 07:42 | RAD ---
PORTABLE UPRIGHT FRONTAL CHEST RADIOGRAPH: Date: 04/13/18 COMPARISON: 02/11/18. HISTORY: Pneumonia. FINDINGS: There is extensive coarse increased linear interstitial density noted throughout both lungs. The lung s are hyperinflated. This combination of findings suggests COPD in the proper clinical setting. There is atherosclerotic calcification of the aortic arch. Asymmetric increased density is noted in the right lung base. There is blunting of the right costophr enic angle as well. Multiple old right-sided rib fractures are noted. IMPRESSION: Interstitial opacity and pulmonary vascular congestion suggesting COPD. Asymmetric increased density in the right base which may signify infectious pneumonitis and/or aspiration. Follow-up suggested. POS: CAM
[2018-04-13] MEDS: guaiFENesin ER 600 MG TAB PO SCH ×2 (09:04→20:51)
[2018-04-13] MEDS: Fluconazole 100 MG TAB PO SCH (09:04)
[2018-04-13] MEDS: Famotidine 20 MG TAB PO SCH ×2 (09:05→20:52)
--- NOTE | 2018-04-13 09:58 | PRG ---
DATE OF SERVICE: 04/13/2018 SUBJECTIVE: The patient is about the same. He is coughing up purulent secretions. PHYSICAL EXAMINATION: VITAL SIGNS: Afebrile. Vital signs stable. HEENT: Unremarkable. NECK: No adenopathy or JVD. LUNGS: Coarse breath sounds bilaterally, primarily in the right base. CARDIAC: S1, S2 regular. ABDOMEN: Soft, nontender. EXTREMITIES: No edema. LABORATORY DATA: His x-ray from [facility] was reviewed. He has subtle right lower lobe infiltrate. I think most of the changes I see bilaterally are chronic. He has severe emphysematous changes. ASSESSMENT: 1. Chronic obstructive pulmonary disease with exacerbation. 2. Probable bronchiectasis. 3. Severe deconditioning. PLAN: 1. Continue IV antibiotics. 2. Change nebs to EzPAP. 3. Continue to follow. Job ID: [id number]
[2018-04-13 10:31] LABS: Anion Gap 13 mmol/L (10-20); BUN (Urea Nitrogen) 12 mg/dL (8.4-25.7); Calc. Creatinine Clearance 94 mL/min (70-130); Calcium 9.2 mg/dL (7.8-10.44); Carbon Dioxide 32 mmol/L (23-31); Chloride 93 mmol/L (98-107); Estimated GFR-MDRD Greater than 90; Glucose 108 mg/dL (80-115); Sodium 134 mmol/L (136-145)
[2018-04-13] MEDS: Mometasone/Formoterol 120 PUFF INHALER INH SCH ×2 (10:44→19:45)
[2018-04-13] MEDS: Acetaminophen/Codeine 30-300mg Tablet PO PRN ×2 (10:58→18:17)
[2018-04-13 10:59] LABS: Band 8 % (5-11); Lymphocytes 2 % (21-51); MDiff Complete? YES; Mean Corpuscular Hemoglobin 29.1 pg (27.0-31.0); Mean Corpuscular Volume 93.9 fL (78.0-98.0); Monocytes 5 % (0-10); Neutrophil 85 % (42-75); Platelet Count 579 thou/uL (130-400); Platelet Morphology Comment Appears Increased; Polychromasia SLIGHT = 2-3 cells (100X) (0-2/hpf); RBC Distribution Width 13.6 % (11.5-14.5); Red Blood Cell (RBC) Count 4.13 mill/uL (4.70-6.10); White Blood Cell (WBC) Count 22.3 thou/uL (4.8-10.8)
[2018-04-13] MEDS: Clarithromycin 500 MG TAB PO SCH ×2 (11:05→20:52)
[2018-04-13] MEDS ORDERED: Saccharomyces boulardii 250 MG CAP PO SCH (12:15)
[2018-04-13] MEDS: Enoxaparin Sodium 40 MG/0.4 ML SYRINGE SC SCH (20:52)
--- NOTE | 2018-04-13 21:37 | PDOC.PN ---
- Subjective Encounter Start Date: 04/13/18 Encounter Start Time: 14:00 Patient seen and examined for Pneumonia/COPD exacerbation. Feels better. No fever. Cough +. No new complaints. No overnight events - Objective MAR Reviewed: Yes Vital Signs & Weight: Vital Signs (12 hours) Temp Pulse Resp BP BP Pulse Ox 04/13/18 16:00 98.2 F 118 H 18 159/92 H 93 L 04/13/18 15:41 119 H 166/101 H 04/13/18 15:15 119 H 16 97 04/13/18 11:15 97.5 F L 119 H 16 165/111 H 97 04/13/18 10:37 112 H 16 96 Weight Admit Weight 115 lb Weight 115 lb I&O: 04/12/18 04/13/18 04/14/18 06:59 06:59 06:59 Intake Total 1400 Output Total 1400 1300 Balance 0 -1300 Result Diagrams: 04/13/18 09:35 04/13/18 09:35 Radiology Reviewed by me: Yes (CXR - Rt sided infiltrate) Phys Exam - Physical Examination Constitutional: NAD Respiratory: no wheezing Rt sided rales/rhonchi Cardiovascular: RRR, no rub Gastrointestinal: soft, non-tender, positive bowel sounds Musculoskeletal: no edema Neurological: moves all 4 limbs Dx/Plan (1) Sepsis due to pneumonia Code(s): J18.9 - PNEUMONIA, UNSPECIFIED ORGANISM; A41.9 - SEPSIS, UNSPECIFIED ORGANISM Status: Acute Comment: ?Gram negative org (2) COPD exacerbation Code(s): J44.1 - CHRONIC OBSTRUCTIVE PULMONARY DISEASE W (ACUTE) EXACERBATION Status: Acute Comment: with ?Bronchiectasis (3) History of histoplasmosis Code(s): Z86.19 - PERSONAL HISTORY OF OTHER INFECTIOUS AND PARASITIC DISEASES Status: Acute Comment: on Fluconazole (4) Physical deconditioning Code(s): R53.81 - OTHER MALAISE Status: Chronic Comment: PT for mobilization , transition back to inpt rehab after d/c (5) HTN (hypertension) Code(s): I10 - ESSENTIAL (PRIMARY) HYPERTENSION Status: Acute (6) Other issues per previous notes - Plan cont current plan of care, continue antibiotics, PT/OT, DVT proph w/SCDs Cont current Atbx/O2/Nebs -: Add low dose Cardizem due to uncontrolled HTN -: AM labs -: Cont other meds as below -: Check Postvoid due to urinary freq Review of Systems - Review of Systems Cardiovascular: negative: chest pain, palpitations, orthopnea, paroxysmal nocturnal dyspnea, edema, light headedness, other Gastrointestinal: negative: Nausea, Vomiting, Abdominal Pain, Diarrhea, Constipation, Melena, Hematochezia, Other Genitourinary: Frequency. negative: Dysuria, Incontinence, Hematuria, Retention , Other - Medications/Allergies Allergies/Adverse Reactions: Allergies Allergy/AdvReac Type Severity Reaction Status Date / Time adhesive tape Allergy Verified 04/12/18 14:25 levofloxacin [From Levaquin] Allergy Verified 04/12/18 14:25 roflumilast [From Daliresp] Allergy Verified 04/12/18 14:41 Medications: Current Medications Acetaminophen (Tylenol) 650 mg PO Q4H PRN PRN Reason: Headache/Fever/Mild Pain (1-3) Acetaminophen (Tylenol) 650 mg [place] Q4H PRN PRN Reason: Headache/Fever/Mild Pain (1-3) Acetaminophen/Codeine Phosphate (Tylenol #3) 2 tab PO Q4H PRN PRN Reason: Severe Pain (7-10) Last Admin: 04/13/18 18:17 Dose: 2 tab Acetaminophen/Codeine Phosphate (Tylenol #3) 1 tab PO Q4H PRN PRN Reason: Moderate Pain (4-6) Albuterol Sulfate (Ventolin) 2.5 mg NEB Q2H PRN PRN Reason: Wheezing Albuterol/Ipratropium (Duoneb) 3 ml EZPAP [id number] [facility] Last Admin: 04/13/18 19:32 Dose: 3 ml Clarithromycin (Biaxin) 500 mg PO Q12HR [facility] Last Admin: 04/13/18 20:52 Dose: 500 mg Diltiazem HCl (Cardizem Cd) 120 mg PO DAILY [facility] Enoxaparin Sodium (Lovenox) 40 mg SC 2100 [facility] Last Admin: 04/13/18 20:52 Dose: 40 mg Famotidine (Pepcid) 20 mg PO BID [facility] Last Admin: 04/13/18 20:52 Dose: 20 mg Fluconazole (Diflucan) 400 mg PO DAILY [facility] Last Admin: 04/13/18 09:04 Dose: 200 mg Guaifenesin (Mucinex) 1,200 mg PO BID [facility] Last Admin: 04/13/18 20:51 Dose: 1,200 mg Cefepime HCl 2 gm/ Sodium (Chloride) 100 mls @ 200 mls/hr IVPB 0600,1800 [facility] Last Admin: 04/13/18 18:18 Dose: 100 mls Tobramycin Sulfate 0.3 gm/ (Sodium Chloride) 7.5 mls @ 0 mls/hr NEB Q12HR [facility] Last Admin: 04/13/18 10:47 Dose: 7.5 mls Ibuprofen (Motrin) 600 mg PO Q8HR [facility] Last Admin: 04/13/18 20:53 Dose: Not Given Methylprednisolone Sodium Succinate (Solu-Medrol) 40 mg IVP 0400,1000,1600, 2200 [facility] Last Admin: 04/13/18 20:52 Dose: 40 mg Mometasone Furoate/Formoterol Fumar (Dulera 100 Mcg/5 Mcg Inhaler) 2 puff INH BID-RT [facility] Last Admin: 04/13/18 19:45 Dose: Not Given Morphine Sulfate (Morphine) 2 mg SLOW IVP Q4H PRN PRN Reason: BREAKTHRU PAIN Last Admin: 04/13/18 20:58 Dose: 2 mg Ondansetron HCl (Zofran Odt) 4 mg PO Q6H PRN PRN Reason: Nausea/Vomiting Ondansetron HCl (Zofran) 4 mg IVP Q6H PRN PRN Reason: Nausea/Vomiting Polyethylene Glycol (Miralax) 17 gm PO DAILY PRN PRN Reason: Constipation Saccharomyces Boulardii (Florastor) 250 mg PO DAILY [facility] Sertraline HCl (Zoloft) 100 mg PO HS [facility] Last Admin: 04/13/18 20:52 Dose: 100 mg Sodium Chloride (Flush - Normal Saline) 10 ml IVF Q12HR [facility] Sodium Chloride (Flush - Normal Saline) 10 ml IVF PRN PRN PRN Reason: Saline Flush
[2018-04-14] MEDS: Morphine 2 MG/ML SYRINGE SLOW IVP PRN (02:32)
[2018-04-14] MEDS: methylPREDNISolone Sod Succ 40 MG VIAL IVP SCH ×4 (04:11→21:43)
[2018-04-14] MEDS: Acetaminophen/Codeine 30-300mg Tablet PO PRN ×4 (04:18→18:32)
[2018-04-14] MEDS: Cefepime 2 GM in Sodium Chloride 0.9% 100 ML IVPB SCH ×2 (05:59→16:47)
[2018-04-14] MEDS: Ibuprofen 600 MG TAB PO SCH ×4 (06:04→21:44)
[2018-04-14] MEDS: Mometasone/Formoterol 120 PUFF INHALER INH SCH ×2 (06:16→19:49)
[2018-04-14] MEDS: Tobramycin Sulfate 0.3 GM in Sodium Chloride 0.9% 7.5 ML NEB SCH ×2 (06:28→22:57)
[2018-04-14 07:01] LABS: Hemoglobin 11.5 g/dL (14.0-18.0); Mean Corpuscular HGB CONC 29.8 g/dL (32.0-36.0); Mean Corpuscular Hemoglobin 28.1 pg (27.0-31.0); Mean Corpuscular Volume 94.5 fL (78.0-98.0); Mean Platelet Volume 7.2 fL (7.4-10.4); Platelet Count 538 thou/uL (130-400); RBC Distribution Width 13.6 % (11.5-14.5); White Blood Cell (WBC) Count 16.7 thou/uL (4.8-10.8)
[2018-04-14 07:20] LABS: BUN (Urea Nitrogen) 14 mg/dL (8.4-25.7); Calc. Creatinine Clearance 106 mL/min (70-130); Calcium 8.9 mg/dL (7.8-10.44); Estimated GFR-MDRD Greater than 90; Glucose 135 mg/dL (80-115); Magnesium 1.6 mg/dL (1.6-2.6)
[2018-04-14 07:29] LABS: Anion Gap 16 mmol/L (10-20); Carbon Dioxide 33 mmol/L (23-31); Chloride 92 mmol/L (98-107); Potassium 3.4 mmol/L (3.5-5.1); Sodium 138 mmol/L (136-145)
[2018-04-14 08:14] LABS: #Lymphocytes 0.5 thou/uL (1.20-3.40); #Monocytes 0.6 thou/uL (0.11-0.59); #Neutrophils 15.6 thou/uL (1.40-6.50); %Eosinophils 0.1 % (0.0-10.0); %Lymphocytes 2.9 % (21.0-51.0); %Monocytes 3.7 % (0.0-10.0); %Neutrophils 93.2 % (42.0-75.0); Band 10 % (5-11); Eosinophils 1 % (0-10); Hypochromia SLIGHT = 6-15 cells (100X) (0-5/hpf); Lymphocytes 4 % (21-51); MDiff Complete? YES; Monocytes 2 % (0-10); Neutrophil 81 % (42-75); Polychromasia SLIGHT = 2-3 cells (100X) (0-2/hpf); Reactive Lymphocytes 2 % (0-10)
[2018-04-14] MEDS: Famotidine 20 MG TAB PO SCH ×2 (09:07→21:43)
[2018-04-14] MEDS: guaiFENesin ER 600 MG TAB PO SCH ×2 (09:07→21:42)
[2018-04-14] MEDS: Saccharomyces boulardii 250 MG CAP PO SCH (09:07)
[2018-04-14] MEDS: Clarithromycin 500 MG TAB PO SCH ×2 (09:08→21:42)
--- NOTE | 2018-04-14 10:48 | PRG ---
DATE OF SERVICE: 04/14/2018 SUBJECTIVE: The patient is doing better. He is having less cough. He wants to get up and walk. OBJECTIVE: VITAL SIGNS: His temperature is 97.7, pulse 98, respirations 18, O2 saturation 98% on 2 L, blood pressure 153/85. HEENT: Unremarkable. NECK: No adenopathy. No JVD. CHEST: Clear, but distant breath sounds. Few crackles at bases. CARDIAC: S1 and S2, regular. ABDOMEN: Soft. EXTREMITIES: No edema. LABORATORY DATA: Sodium 138, potassium 3.4, BUN 14, creatinine 0.5, glucose 135. White blood cell count 16.7, hematocrit 38.7, platelet count 538. ASSESSMENT: 1. Chronic obstructive pulmonary disease with exacerbation. 2. Bronchiectasis. 3. Severe deconditioning. PLAN: 1. Continue IV antibiotics and EzPAP. 2. Ambulate. Job ID: [id number]
--- NOTE | 2018-04-14 10:59 | PDOC.PN ---
- Subjective Encounter Start Date: 04/14/18 Encounter Start Time: 10:58 follow up for AECOPD, chronic bronchiectasis and severe physical deconditioning , POA. No F/C, no N/V/D/C, no CP, SOB stable, still requiring EZPAP. All systems reviewed and neg x as above - Objective MAR Reviewed: Yes Vital Signs & Weight: Vital Signs (12 hours) Temp Pulse Resp BP BP Pulse Ox 04/14/18 10:42 111 H 18 98 04/14/18 08:00 97.7 F 98 18 153/85 H 98 04/14/18 06:14 110 H 18 97 04/14/18 04:00 97.7 F 101 H 20 145/94 H 96 Weight Admit Weight 115 lb Weight 115 lb I&O: 04/13/18 04/14/18 04/15/18 06:59 06:59 06:59 Intake Total 1400 580 Output Total 1400 2000 Balance 0 -1420 Result Diagrams: 04/14/18 06:07 04/14/18 06:07 Phys Exam - Physical Examination Constitutional: NAD HEENT: PERRLA, moist MMs, sclera anicteric, oral pharynx no lesions Neck: no nodes, no JVD, supple, full ROM Respiratory: no rhonchi, wheezing present Cardiovascular: RRR, no significant murmur, no rub Gastrointestinal: soft, non-tender, no distention, positive bowel sounds Musculoskeletal: edema present Neurological: non-focal, normal sensation, moves all 4 limbs Lymphatic: no nodes Psychiatric: A&O x 3 Skin: no rash, normal turgor, cap refill <2 seconds Dx/Plan (1) COPD exacerbation Code(s): J44.1 - CHRONIC OBSTRUCTIVE PULMONARY DISEASE W (ACUTE) EXACERBATION Status: Acute Comment: with ?Bronchiectasis (2) HTN (hypertension) Code(s): I10 - ESSENTIAL (PRIMARY) HYPERTENSION Status: Acute (3) History of histoplasmosis Code(s): Z86.19 - PERSONAL HISTORY OF OTHER INFECTIOUS AND PARASITIC DISEASES Status: Acute Comment: on Fluconazole (4) Acute respiratory failure with hypoxia Code(s): J96.01 - ACUTE RESPIRATORY FAILURE WITH HYPOXIA Status: Acute Comment: Continue O2 support, wean as clinically indicated (5) Physical deconditioning Code(s): R53.81 - OTHER MALAISE Status: Chronic Comment: PT for mobilization , transition back to inpt rehab after d/c - Plan * .
[2018-04-14] MEDS: Fluconazole 100 MG TAB PO SCH (12:13)
[2018-04-14] MEDS: Enoxaparin Sodium 40 MG/0.4 ML SYRINGE SC SCH (21:43)
[2018-04-15] MEDS: Acetaminophen/Codeine 30-300mg Tablet PO PRN ×4 (00:58→20:08)
[2018-04-15] MEDS: methylPREDNISolone Sod Succ 40 MG VIAL IVP SCH (03:02)
[2018-04-15] MEDS: Cefepime 2 GM in Sodium Chloride 0.9% 100 ML IVPB SCH ×2 (04:58→17:25)
[2018-04-15] MEDS: Ibuprofen 600 MG TAB PO SCH (06:09)
[2018-04-15] MEDS: Mometasone/Formoterol 120 PUFF INHALER INH SCH ×2 (06:57→22:09)
[2018-04-15 07:56] LABS: #Lymphocytes 0.5 thou/uL (1.20-3.40); #Monocytes 0.5 thou/uL (0.11-0.59); #Neutrophils 11.5 thou/uL (1.40-6.50); %Lymphocytes 3.8 % (21.0-51.0); %Monocytes 3.8 % (0.0-10.0); %Neutrophils 92.3 % (42.0-75.0); Hemoglobin 11.9 g/dL (14.0-18.0); Mean Corpuscular Hemoglobin 29.1 pg (27.0-31.0); Mean Corpuscular Volume 93.8 fL (78.0-98.0); Mean Platelet Volume 7.1 fL (7.4-10.4); Platelet Count 564 thou/uL (130-400); RBC Distribution Width 13.6 % (11.5-14.5); Red Blood Cell (RBC) Count 4.09 mill/uL (4.70-6.10); White Blood Cell (WBC) Count 12.4 thou/uL (4.8-10.8)
[2018-04-15] MEDS: guaiFENesin ER 600 MG TAB PO SCH ×2 (08:05→20:08)
[2018-04-15] MEDS: Famotidine 20 MG TAB PO SCH ×2 (08:05→20:08)
[2018-04-15] MEDS: Saccharomyces boulardii 250 MG CAP PO SCH (08:06)
[2018-04-15] MEDS: Clarithromycin 250 MG TAB PO SCH ×2 (08:06→20:07)
[2018-04-15 08:14] LABS: Anion Gap 13 mmol/L (10-20); BUN (Urea Nitrogen) 12 mg/dL (8.4-25.7); Calc. Creatinine Clearance 96 mL/min (70-130); Calcium 8.8 mg/dL (7.8-10.44); Carbon Dioxide 37 mmol/L (23-31); Chloride 92 mmol/L (98-107); Estimated GFR-MDRD Greater than 90; Glucose 143 mg/dL (80-115); Magnesium 1.6 mg/dL (1.6-2.6); Potassium 3.3 mmol/L (3.5-5.1); Sodium 139 mmol/L (136-145)
[2018-04-15] MEDS: Tobramycin Sulfate 0.3 GM in Sodium Chloride 0.9% 7.5 ML NEB SCH ×2 (09:30→22:09)
[2018-04-15] MEDS ORDERED: predniSONE 20 MG TAB PO SCH (10:30)
--- NOTE | 2018-04-15 10:44 | PRG ---
DATE OF SERVICE: 04/15/2018 SUBJECTIVE: He feels better and is contemplating going home. OBJECTIVE: VITAL SIGNS: Temperature 97.9, pulse 119, respirations 18, O2 saturation 100% on 3 L. HEENT: Unremarkable. NECK: No JVD. CHEST: Fairly clear without significant wheezing. CARDIAC: S1, S2. Regular. ABDOMEN: Soft. EXTREMITIES: No edema. LABORATORY DATA: White blood cell count 12.4, hematocrit 38.4, and platelet count 564. Sodium 139, potassium 3.3, BUN 12, creatinine 0.5 glucose 143. ASSESSMENT: 1. Chronic obstructive pulmonary disease exacerbation. 2. Bronchiectasis/bronchopneumonia. 3. Severe deconditioning. PLAN: He can likely be switched over to oral antibiotics and discharged with plans to treat him for about two weeks. His prednisone can be weaned over a couple weeks. Job ID: [id number]
[2018-04-15] MEDS ORDERED: Magnesium Sulfate 2 GM in Sodium Chloride 0.9% 100 ML IVPB SCH (13:00)
[2018-04-15] MEDS ORDERED: Magnesium 2 GM/50 ML 2 GM in Premix Bag 1 BAG IVPB SCH (13:30)
[2018-04-15] MEDS ORDERED: Ibuprofen 600 MG TAB PO PRN (13:40)
[2018-04-15] MEDS: Enoxaparin Sodium 40 MG/0.4 ML SYRINGE SC SCH (20:08)
[2018-04-15] MEDS: predniSONE 20 MG TAB PO SCH (20:08)
--- NOTE | 2018-04-15 22:58 | PDOC.PN ---
- Subjective Encounter Start Date: 04/15/18 Encounter Start Time: 12:00 Patient seen and examined for COPD exacerbation. No new complaints. No overnight events - Objective MAR Reviewed: Yes Vital Signs & Weight: Vital Signs (12 hours) Temp Pulse Resp BP Pulse Ox 04/15/18 22:08 120 H 16 97 04/15/18 19:20 97.9 F 118 H 20 164/100 H 98 04/15/18 14:09 111 H 18 97 Weight Admit Weight 115 lb Weight 115 lb I&O: 04/14/18 04/15/18 04/16/18 06:59 06:59 06:59 Intake Total 580 600 Output Total 1999 1350 1300 Balance -5012 -719 -2178 Result Diagrams: 04/16/18 06:22 04/16/18 06:22 Phys Exam - Physical Examination Constitutional: NAD Respiratory: no wheezing, no rhonchi Cardiovascular: RRR, no rub Gastrointestinal: soft, non-tender, positive bowel sounds Musculoskeletal: no edema Neurological: moves all 4 limbs Dx/Plan (1) Sepsis due to pneumonia Code(s): J18.9 - PNEUMONIA, UNSPECIFIED ORGANISM; A41.9 - SEPSIS, UNSPECIFIED ORGANISM Status: Acute Comment: ?Gram negative org (2) COPD exacerbation Code(s): J44.1 - CHRONIC OBSTRUCTIVE PULMONARY DISEASE W (ACUTE) EXACERBATION Status: Acute Comment: with ?Bronchiectasis (3) History of histoplasmosis Code(s): Z86.19 - PERSONAL HISTORY OF OTHER INFECTIOUS AND PARASITIC DISEASES Status: Acute Comment: on Fluconazole (4) Physical deconditioning Code(s): R53.81 - OTHER MALAISE Status: Chronic Comment: PT for mobilization , transition back to inpt rehab after d/c (5) HTN (hypertension) Code(s): I10 - ESSENTIAL (PRIMARY) HYPERTENSION Status: Chronic (6) Other issues per previous notes - Plan cont current plan of care, continue antibiotics, out of bed/ambulate, DVT proph w/SCDs Cont Nebs -: Cont PO Prednisone -: DC in 24-48 hr -: Cont PO Cardizem Review of Systems - Review of Systems Respiratory: Cough, Dry Cardiovascular: negative: chest pain, palpitations, orthopnea, paroxysmal nocturnal dyspnea, edema, light headedness, other Gastrointestinal: negative: Nausea, Vomiting, Abdominal Pain, Diarrhea, Constipation, Melena, Hematochezia, Other - Medications/Allergies Allergies/Adverse Reactions: Allergies Allergy/AdvReac Type Severity Reaction Status Date / Time adhesive tape Allergy Verified 04/12/18 14:25 levofloxacin [From Levaquin] Allergy Verified 04/12/18 14:25 roflumilast [From Daliresp] Allergy Verified 04/12/18 14:41 Medications: Current Medications Acetaminophen (Tylenol) 650 mg PO Q4H PRN PRN Reason: Headache/Fever/Mild Pain (1-3) Acetaminophen (Tylenol) 650 mg [place] Q4H PRN PRN Reason: Headache/Fever/Mild Pain (1-3) Acetaminophen/Codeine Phosphate (Tylenol #3) 2 tab PO Q4H PRN PRN Reason: Severe Pain (7-10) Last Admin: 04/15/18 20:08 Dose: 2 tab Acetaminophen/Codeine Phosphate (Tylenol #3) 1 tab PO Q4H PRN PRN Reason: Moderate Pain (4-6) Albuterol Sulfate (Ventolin) 2.5 mg NEB Q2H PRN PRN Reason: Wheezing Albuterol/Ipratropium (Duoneb) 3 ml EZPAP [id number] [facility] Last Admin: 04/15/18 22:08 Dose: 3 ml Clarithromycin (Biaxin) 500 mg PO BID [facility] Last Admin: 04/15/18 20:07 Dose: 500 mg Diltiazem HCl (Cardizem Cd) 120 mg PO DAILY [facility] Last Admin: 04/15/18 08:06 Dose: 120 mg Enoxaparin Sodium (Lovenox) 40 mg SC 2100 [facility] Last Admin: 04/15/18 20:08 Dose: 40 mg Famotidine (Pepcid) 20 mg PO BID [facility] Last Admin: 04/15/18 20:08 Dose: 20 mg Guaifenesin (Mucinex) 1,200 mg PO BID [facility] Last Admin: 04/15/18 20:08 Dose: 1,200 mg Cefepime HCl 2 gm/ Sodium (Chloride) 100 mls @ 200 mls/hr IVPB 0600,1800 [facility] Last Admin: 04/15/18 17:25 Dose: 100 mls Tobramycin Sulfate 0.3 gm/ (Sodium Chloride) 7.5 mls @ 0 mls/hr NEB Q12HR [facility] Last Admin: 04/15/18 22:09 Dose: 7.5 mls Ibuprofen (Motrin) 600 mg PO Q8HR PRN PRN Reason: Pain Mometasone Furoate/Formoterol Fumar (Dulera 100 Mcg/5 Mcg Inhaler) 2 puff INH BID-RT [facility] Last Admin: 04/15/18 22:09 Dose: Not Given Morphine Sulfate (Morphine) 2 mg SLOW IVP Q4H PRN PRN Reason: BREAKTHRU PAIN Last Admin: 04/14/18 02:32 Dose: 2 mg Ondansetron HCl (Zofran Odt) 4 mg PO Q6H PRN PRN Reason: Nausea/Vomiting Ondansetron HCl (Zofran) 4 mg IVP Q6H PRN PRN Reason: Nausea/Vomiting Polyethylene Glycol (Miralax) 17 gm PO DAILY PRN PRN Reason: Constipation Prednisone (Prednisone) 20 mg PO BID [facility] Last Admin: 04/15/18 20:08 Dose: 20 mg Saccharomyces Boulardii (Florastor) 250 mg PO DAILY [facility] Last Admin: 04/15/18 08:06 Dose: 250 mg Sertraline HCl (Zoloft) 100 mg PO HS [facility] Last Admin: 04/15/18 20:08 Dose: 100 mg Sodium Chloride (Flush - Normal Saline) 10 ml IVF Q12HR [facility] Last Admin: 04/15/18 20:09 Dose: 10 ml Sodium Chloride (Flush - Normal Saline) 10 ml IVF PRN PRN PRN Reason: Saline Flush
[2018-04-16] MEDS: Cefepime 2 GM in Sodium Chloride 0.9% 100 ML IVPB SCH ×2 (05:02→18:05)
[2018-04-16] MEDS: Acetaminophen/Codeine 30-300mg Tablet PO PRN ×5 (05:03→20:34)
[2018-04-16] MEDS: Mometasone/Formoterol 120 PUFF INHALER INH SCH ×2 (06:51→18:34)
[2018-04-16 07:03] LABS: #Lymphocytes 0.9 thou/uL (1.20-3.40); #Monocytes 1.1 thou/uL (0.11-0.59); #Neutrophils 13.3 thou/uL (1.40-6.50); %Basophils 0.1 % (0.0-1.0); %Eosinophils 0.1 % (0.0-10.0); %Lymphocytes 6.1 % (21.0-51.0); %Neutrophils 86.8 % (42.0-75.0); Hemoglobin 12.1 g/dL (14.0-18.0); Mean Corpuscular HGB CONC 30.8 g/dL (32.0-36.0); Mean Corpuscular Hemoglobin 28.8 pg (27.0-31.0); Mean Corpuscular Volume 93.5 fL (78.0-98.0); Mean Platelet Volume 6.9 fL (7.4-10.4); Platelet Count 629 thou/uL (130-400); RBC Distribution Width 13.7 % (11.5-14.5); Red Blood Cell (RBC) Count 4.19 mill/uL (4.70-6.10); White Blood Cell (WBC) Count 15.3 thou/uL (4.8-10.8)
[2018-04-16 07:12] LABS: ALT (SGPT) 18 U/L (8-55); AST (SGOT) 18 U/L (5-34); Albumin 2.6 g/dL (3.4-4.8); Alkaline Phosphatase 69 U/L (40-150); BUN (Urea Nitrogen) 11 mg/dL (8.4-25.7); Bilirubin, Total 0.2 mg/dL (0.2-1.2); Calc. Creatinine Clearance 96 mL/min (70-130); Calcium 8.5 mg/dL (7.8-10.44); Estimated GFR-MDRD Greater than 90; Globulin 3.1 g/dL (2.4-3.5); Glucose 92 mg/dL (80-115); Phosphorus 2.1 mg/dL (2.3-4.7); Protein, Total 5.7 g/dL (5.8-8.1)
[2018-04-16 07:36] LABS: Anion Gap 11 mmol/L (10-20); Carbon Dioxide 40 mmol/L (23-31); Chloride 91 mmol/L (98-107); Potassium 3.4 mmol/L (3.5-5.1); Sodium 139 mmol/L (136-145)
[2018-04-16] MEDS: Clarithromycin 250 MG TAB PO SCH ×2 (07:59→20:34)
[2018-04-16] MEDS: Famotidine 20 MG TAB PO SCH ×2 (08:02→20:35)
[2018-04-16] MEDS: Saccharomyces boulardii 250 MG CAP PO SCH (08:03)
[2018-04-16] MEDS: guaiFENesin ER 600 MG TAB PO SCH ×2 (08:03→20:33)
[2018-04-16] MEDS: predniSONE 20 MG TAB PO SCH ×2 (08:03→20:34)
[2018-04-16] MEDS: Morphine 2 MG/ML SYRINGE SLOW IVP PRN ×2 (08:10→12:08)
[2018-04-16] MEDS: Tobramycin Sulfate 0.3 GM in Sodium Chloride 0.9% 7.5 ML NEB SCH ×2 (09:32→22:10)
[2018-04-16] MEDS ORDERED: K-Phos Neutral 250 MG TAB PO SCH ×2 (09:45→12:00)
--- NOTE | 2018-04-16 12:37 | PRG ---
DATE OF SERVICE: 04/16/2018 SUBJECTIVE: This morning, he is still having difficulty breathing, cough, and congestion. OBJECTIVE: VITAL SIGNS: Saturations are 97% on 2 L, pulse 107, temperature 98, and blood pressure 156/96. CHEST: Decreased breath sounds. Bilateral rhonchi. CARDIAC: Normal S1 and S2. No gallops. ABDOMEN: No masses. LABORATORY DATA: White count 15,000, H and H are 12 and 39, and platelet count is normal. Lytes are normal. IMPRESSION: Bilateral bronchiectasis, superimposed right-sided pneumonia, and multiple old fractured ribs. PLAN: The patient said he is not ready to go home. Still weak and cachectic. Continue neb treatments, supportive care, and PT. We will follow. Job ID: [id number]
--- NOTE | 2018-04-16 14:03 | PDOC.PN ---
- Subjective Encounter Start Date: 04/16/18 Encounter Start Time: 09:00 Patient seen and examined for COPD exacerbation. Dry cough +. Chest wall discomfort from coughing. No new complaints. No overnight events - Objective MAR Reviewed: Yes Vital Signs & Weight: Vital Signs (12 hours) Temp Pulse Resp BP BP Pulse Ox 04/16/18 13:11 107 H 18 96 04/16/18 08:00 98.0 F 107 H 22 H 156/96 H 95 04/16/18 07:59 105 H 155/96 H 04/16/18 06:48 94 20 95 04/16/18 04:10 80 148/82 H 04/16/18 04:00 98.0 F 107 H 20 159/112 H 94 L 04/16/18 02:31 112 H 16 Weight Admit Weight 115 lb Weight 115 lb I&O: 04/15/18 04/16/18 04/17/18 06:59 06:59 06:59 Intake Total 600 800 Output Total 1350 2050 Balance -750 -1250 Result Diagrams: 04/16/18 06:22 04/16/18 06:22 Additional Labs: Microbiology 04/11/18 13:07 Urine voided Urine Culture - Final NO GROWTH AT 48 HOURS 04/11/18 11:33 Sputum Respiratory Culture - Preliminary Pseudomonas aeruginosa 04/11/18 11:06 Venous blood - Right Arm Blood Culture - Preliminary NO GROWTH AT 48 HOURS Laboratory Tests 04/16/18 06:22 Phosphorus 2.1 L Phys Exam - Physical Examination Constitutional: NAD Neck: no JVD Respiratory: wheezing present Bibasilar rales with ronchi Cardiovascular: RRR, no rub Gastrointestinal: soft, positive bowel sounds Musculoskeletal: no edema Neurological: moves all 4 limbs Dx/Plan (1) Sepsis due to pneumonia Code(s): J18.9 - PNEUMONIA, UNSPECIFIED ORGANISM; A41.9 - SEPSIS, UNSPECIFIED ORGANISM Status: Acute Comment: Prob due to Pseudomonas. (2) COPD exacerbation Code(s): J44.1 - CHRONIC OBSTRUCTIVE PULMONARY DISEASE W (ACUTE) EXACERBATION Status: Acute Comment: with ?Bronchiectasis (3) History of histoplasmosis Code(s): Z86.19 - PERSONAL HISTORY OF OTHER INFECTIOUS AND PARASITIC DISEASES Status: Acute Comment: on Fluconazole (4) Physical deconditioning Code(s): R53.81 - OTHER MALAISE Status: Chronic Comment: PT for mobilization , transition back to inpt rehab after d/c (5) HTN (hypertension) Code(s): I10 - ESSENTIAL (PRIMARY) HYPERTENSION Status: Chronic (6) Other issues per previous notes - Plan cont current plan of care, continue antibiotics, PT/OT, respiratory therapy, DVT proph w/SCDs cont current Atbx/Nebs/O2/Prednisone -: AM labs -: Replace electrolytes -: Not stable for dc Review of Systems - Review of Systems Respiratory: Cough, Dry, SOB with Excertion. negative: Shortness of Breath, Hemoptysis, Pleuritic Pain, Sputum, Wheezing Cardiovascular: negative: chest pain, palpitations, orthopnea, paroxysmal nocturnal dyspnea, edema, light headedness, other Gastrointestinal: negative: Nausea, Vomiting, Abdominal Pain, Diarrhea, Constipation, Melena, Hematochezia, Other - Medications/Allergies Allergies/Adverse Reactions: Allergies Allergy/AdvReac Type Severity Reaction Status Date / Time adhesive tape Allergy Verified 04/12/18 14:25 levofloxacin [From Levaquin] Allergy Verified 04/12/18 14:25 roflumilast [From Daliresp] Allergy Verified 04/12/18 14:41 Medications: Current Medications Acetaminophen (Tylenol) 650 mg PO Q4H PRN PRN Reason: Headache/Fever/Mild Pain (1-3) Acetaminophen (Tylenol) 650 mg [place] Q4H PRN PRN Reason: Headache/Fever/Mild Pain (1-3) Acetaminophen/Codeine Phosphate (Tylenol #3) 2 tab PO Q4H PRN PRN Reason: Severe Pain (7-10) Last Admin: 04/16/18 13:36 Dose: 2 tab Acetaminophen/Codeine Phosphate (Tylenol #3) 1 tab PO Q4H PRN PRN Reason: Moderate Pain (4-6) Albuterol Sulfate (Ventolin) 2.5 mg NEB Q2H PRN PRN Reason: Wheezing Albuterol/Ipratropium (Duoneb) 3 ml EZPAP [id number] [facility] Last Admin: 04/16/18 13:11 Dose: 3 ml Clarithromycin (Biaxin) 500 mg PO BID [facility] Last Admin: 04/16/18 07:59 Dose: 500 mg Diltiazem HCl (Cardizem Cd) 120 mg PO DAILY [facility] Last Admin: 04/16/18 07:59 Dose: 120 mg Enoxaparin Sodium (Lovenox) 40 mg SC 2100 [facility] Last Admin: 04/15/18 20:08 Dose: 40 mg Famotidine (Pepcid) 20 mg PO BID [facility] Last Admin: 04/16/18 08:02 Dose: 20 mg Guaifenesin (Mucinex) 1,200 mg PO BID [facility] Last Admin: 04/16/18 08:03 Dose: 1,200 mg Cefepime HCl 2 gm/ Sodium (Chloride) 100 mls @ 200 mls/hr IVPB 0600,1800 [facility] Last Admin: 04/16/18 05:02 Dose: 100 mls Tobramycin Sulfate 0.3 gm/ (Sodium Chloride) 7.5 mls @ 0 mls/hr NEB Q12HR [facility] Last Admin: 04/16/18 09:32 Dose: Not Given Ibuprofen (Motrin) 600 mg PO Q8HR PRN PRN Reason: Pain Mometasone Furoate/Formoterol Fumar (Dulera 100 Mcg/5 Mcg Inhaler) 2 puff INH BID-RT [facility] Last Admin: 04/16/18 06:51 Dose: Not Given Morphine Sulfate (Morphine) 2 mg SLOW IVP Q4H PRN PRN Reason: BREAKTHRU PAIN Last Admin: 04/16/18 12:08 Dose: 2 mg Ondansetron HCl (Zofran Odt) 4 mg PO Q6H PRN PRN Reason: Nausea/Vomiting Ondansetron HCl (Zofran) 4 mg IVP Q6H PRN PRN Reason: Nausea/Vomiting Phosphorus (Kphos Neutral) 500 mg PO TID-WM [facility] Last Admin: 04/16/18 12:10 Dose: Not Given Polyethylene Glycol (Miralax) 17 gm PO DAILY PRN PRN Reason: Constipation Prednisone (Prednisone) 20 mg PO BID [facility] Last Admin: 04/16/18 08:03 Dose: 20 mg Saccharomyces Boulardii (Florastor) 250 mg PO DAILY [facility] Last Admin: 04/16/18 08:03 Dose: 250 mg Sertraline HCl (Zoloft) 100 mg PO HS [facility] Last Admin: 04/15/18 20:08 Dose: 100 mg Sodium Chloride (Flush - Normal Saline) 10 ml IVF Q12HR [facility] Last Admin: 04/16/18 08:04 Dose: 10 ml Sodium Chloride (Flush - Normal Saline) 10 ml IVF PRN PRN PRN Reason: Saline Flush
[2018-04-16] MEDS: Enoxaparin Sodium 40 MG/0.4 ML SYRINGE SC SCH (20:34)
[2018-04-17] MEDS: Acetaminophen/Codeine 30-300mg Tablet PO PRN ×3 (05:19→14:04)
[2018-04-17] MEDS: Cefepime 2 GM in Sodium Chloride 0.9% 100 ML IVPB SCH (05:19)
[2018-04-17] MEDS: Mometasone/Formoterol 120 PUFF INHALER INH SCH (06:41)
[2018-04-17 07:47] LABS: #Lymphocytes 0.9 thou/uL (1.20-3.40); #Monocytes 1.1 thou/uL (0.11-0.59); %Basophils 0.2 % (0.0-1.0); %Eosinophils 0.2 % (0.0-10.0); %Lymphocytes 6.1 % (21.0-51.0); %Neutrophils 86.5 % (42.0-75.0); Hemoglobin 12.1 g/dL (14.0-18.0); Mean Corpuscular HGB CONC 30.9 g/dL (32.0-36.0); Mean Corpuscular Hemoglobin 28.6 pg (27.0-31.0); Mean Corpuscular Volume 92.6 fL (78.0-98.0); Mean Platelet Volume 7.4 fL (7.4-10.4); Platelet Count 643 thou/uL (130-400); RBC Distribution Width 13.7 % (11.5-14.5); Red Blood Cell (RBC) Count 4.22 mill/uL (4.70-6.10)
[2018-04-17] MEDS: Clarithromycin 250 MG TAB PO SCH (07:52)
[2018-04-17] MEDS: predniSONE 20 MG TAB PO SCH (07:52)
[2018-04-17] MEDS: Saccharomyces boulardii 250 MG CAP PO SCH (07:52)
[2018-04-17] MEDS: guaiFENesin ER 600 MG TAB PO SCH (07:53)
[2018-04-17] MEDS: Famotidine 20 MG TAB PO SCH (07:53)
[2018-04-17] MEDS: Morphine 2 MG/ML SYRINGE SLOW IVP PRN (08:00)
[2018-04-17 08:20] LABS: Anion Gap 18 mmol/L (10-20); Carbon Dioxide 32 mmol/L (23-31); Chloride 90 mmol/L (98-107); Potassium 3.8 mmol/L (3.5-5.1); Sodium 136 mmol/L (136-145)
[2018-04-17 08:26] LABS: Albumin 2.7 g/dL (3.4-4.8); BUN (Urea Nitrogen) 16 mg/dL (8.4-25.7); BUN/Creatinine Ratio 28.57; Calc. Creatinine Clearance 94 mL/min (70-130); Calcium 8.6 mg/dL (7.8-10.44); Estimated GFR-MDRD Greater than 90; Glucose 89 mg/dL (80-115); Phosphorus 3.3 mg/dL (2.3-4.7)
[2018-04-17] MEDS ORDERED: K-Phos Neutral 250 MG TAB PO SCH (09:00)
[2018-04-17] MEDS: Tobramycin Sulfate 0.3 GM in Sodium Chloride 0.9% 7.5 ML NEB SCH (09:09)
[2018-04-17 09:30] VITALS: TEMP 98
--- NOTE | 2018-04-17 11:43 | PRG ---
DATE OF SERVICE: 04/17/2018 SUBJECTIVE: A 68-year-old gentleman, who is doing better, still got a cough. He would like to go home he tells me. He is out of [facility]. OBJECTIVE: VITAL SIGNS: Saturations are 97% on 2 L, respiratory rate 20, heart rate 98, and blood pressure 149/95. CHEST: Decreased breath sounds. No wheezing. CARDIAC: Normal S1 and S2. No gallop. ABDOMEN: No masses. IMPRESSION: Chronic bronchitis, bronchiectasis, and recurrent gram-negative infection. PLAN: He can be discharged home. Follow up with his primary care physician and Pulmonary physician. Job ID: [id number]
[2018-04-17 14:33] VITALS: BP 100/68
--- NOTE | 2018-04-17 16:05 | DIS ---
DATE OF ADMISSION: 04/12/2018 DATE OF DISCHARGE: 04/17/2018 DISCHARGE DIAGNOSES: 1. Healthcare associated right lower lobe pneumonia, suspected Pseudomonas species. 2. Chronic bronchiectasis. 3. Hozwz-[id number] obstructive pulmonary disease exacerbation. 4. Xnvpk-[id number] hypoxic hypercapnic respiratory failure. 5. Severe cachexia. 6. Hypokalemia, resolved. CONSULTATIONS: Dr. Ramos and Dr. Nelson with Pulmonology Service. PERTINENT LAB AND X-RAY FINDINGS: Potassium ranged between 3.3 to 4.0. Phosphorus ranged between 2.1 to 3.3. Magnesium level ranged between 1.6 to 2.0. Albumin ranged between 2.6 to 2.7. CBC showed a white blood cell count ranged between 12.4 to 22.3. Hemoglobin ranged between 11.5 to 12.1. Blood culture from 04/11/2018 showed no growth at 5 days. Respiratory culture dated 04/11/2018 showed Pseudomonas aeruginosa. Urine culture dated 04/11/2018 showed no growth at 48 hours. Portable chest x-ray dated 04/13/2018 showed interstitial opacity and pulmonary vascular prominence consistent with prior diagnosis of chronic bronchiectasis and chronic obstructive pulmonary disease. HOSPITAL COURSE: The patient was admitted to the medical floor after presenting with increased shortness of breath and cough in the context of known chronic bronchiectasis and prior history of healthcare associated pneumonia with Pseudomonas species in February 2018. The patient also with a history of chronic histoplasmosis pneumonia and chronic obstructive pulmonary disease. The patient was placed on broad-spectrum IV antibiotic therapy to include cefepime in addition to Biaxin. The patient was given bronchodilator support as well as prednisone. The patient received general pulmonary supportive management throughout the hospital course with overall attainment of baseline functional and oxygen status prior to discharge. The patient received general supportive management in addition to nutritional support due to severe cachexia. The patient was evaluated by the Pulmonology Service with recommendations for general pulmonary supportive management and antibiotic therapy. I examined the patient at the time of discharge and discussed followup instructions. The patient verbalized understanding and agreement and ready for discharge on 04/17/2018. DISCHARGE MEDICATIONS: 1. Tylenol #3, 300 mg/30 mg 2 tabs p.o. q.4 hours p.r.n. for pain. 2. Proventil 1 puff inhaled q.4 hours p.r.n. 3. Fluconazole 400 mg p.o. daily. 4. Trelegy Ellipta 100-62.5-25, one inhalation daily. 5. DuoNeb 3 mL nebulized q.i.d. p.r.n. 6. Multivitamin 1 tablet p.o. daily. 7. MiraLAX 17 g p.o. daily. 8. Sertraline 100 mg p.o. nightly. 9. Biaxin 500 mg p.o. b.i.d. 10. Motrin 600 mg p.o. q.8 hours p.r.n. 11. Prednisone 20 mg one tab p.o. b.i.d. x3 days, followed by 1 tab p.o. daily x3 days, followed by half a tab p.o. daily x3 days. 12. Florastor 250 mg p.o. daily. FOLLOWUP: The patient may follow up with Dr. Andrew Aleman in [place], [place] after discharge. CONDITION ON DISCHARGE: Guarded. ACTIVITY: Ad-alec. DIET: Regular. CODE STATUS: Full. DISPOSITION: Home, 04/17/2018. TIME SPENT: Total time preparing and coordinating discharge is 34 minutes. Job ID: [id number]
== END 2018-04-17 15:13 | disposition home or self-care (01) | DRG 871 ==
LOC: T4-A 14:13
PROVIDERS: ADMIT Internal Medicine; ATTEND Internal Medicine
DX: A41.9 Sepsis, unspecified organism (principal); J18.9 Pneumonia, unspecified organism; B39.2 Pulmonary histoplasmosis capsulati, unspecified; J96.22 Acute and chronic respiratory failure with hypercapnia; J96.21 Acute and chronic respiratory failure with hypoxia; J44.1 Chronic obstructive pulmonary disease with (acute) exacerbation; R64 Cachexia; Z68.1 Body mass index [BMI] 19.9 or less, adult; I10 Essential (primary) hypertension; F32.9 Major depressive disorder, single episode, unspecified; M81.0 Age-related osteoporosis without current pathological fracture; E87.6 Hypokalemia; Z87.891 Personal history of nicotine dependence
CPT/HCPCS: 36415; 71045; 80048; 80053; 80069; 83735; 84100; 85025; 94640; J0692; J1650; J2270; J2920; J3260; J3475; J7050; J7620

== ENCOUNTER 2018-05-16 12:41 | Outpatient (CLI) | payer MEDICARE ==
--- NOTE | 2018-05-16 14:17 | RAD ---
TWO VIEWS CHEST: Date: 05-16-18 Provided Clinical History: Dyspnea. FINDINGS: Comparison was made with the study dated 04-23-18. Cardiac and mediastinal silhouette is unchanged in appearance. Extensive emphysematous changes and in terstitial changes are redemonstrated. There are multiple remote right sided rib fractures again seen . There is evidence for blunting of the right costophrenic angle and right pleural effusion, similar to the prior study. Slight improvement in aeration of the right lung base. There is no evidence for p neumothorax. IMPRESSION: Extensive chronic lung disease with some improvement in aeration of the right lung base. Persistent r ight pleural fluid and or scarring. POS: [facility]
== END 2018-05-16 12:42 | disposition home or self-care (01) ==
LOC: RAD 12:41
PROVIDERS: ATTEND Internal Medicine Critical Care Medicine
DX: R06.00 Dyspnea, unspecified (principal); J98.4 Other disorders of lung
CPT/HCPCS: 71046